=== PATIENT | male | born 1960 | race Caucasian/White ===

== ENCOUNTER 2017-01-31 14:04 | Emergency (ER) | payer OTHER ==
[2017-01-31] MEDS ORDERED: NS 0.9% 1000 ML* 1,000 ML IV SCH ×2 (14:45→15:45)
[2017-01-31 15:31] LABS: Hematocrit 35 % (42-52); Mean Corpuscular HGB Conc 34 g/dl (31-36); Mean Corpuscular Hemoglobin 30 pg (27-31); Mean Corpuscular Volume 89 fL (80-94); Mean Platelet Volume 7 um3 (7.4-10.4); Red Blood Count 3.98 10^6/ul (4.0-5.4); Red Cell Distribution Width 15 % (10.5-15); White Blood Count 8.7 10^3/ul (3.5-10.8)
[2017-01-31 15:36] LABS: ALT 26 U/L (7-52); AST 17 U/L (13-39); Albumin 3.6 g/dL (3.2-5.2); Alkaline Phosphatase 148 U/L (34-104); BUN/Creatinine Ratio 36.1 (8-20); Blood Urea Nitrogen 126 mg/dL (6-24); C Reactive Protein 72.38 mg/L (< 5.00); Calcium 9.4 mg/dL (8.6-10.3); Chloride 95 mmol/L (101-111); Creatine Kinase 81 U/L (10-223); EGFR African American 23.6 (>60); EGFR Non-African American 18.3 (>60); Globulin 4.8 g/dL (2-4); Glucose 134 mg/dL (70-100); Sodium 120 mmol/L (133-145); Total Protein 8.4 g/dL (6.4-8.9)
[2017-01-31] MEDS ORDERED: Acetaminophen TAB* 325 MG PO PRN (15:42)
[2017-01-31] MEDS ORDERED: Senna TAB PO PRN (15:42)
[2017-01-31] MEDS ORDERED: Albuterol/Ipratropium NEB.SOL* Albuterol 2.5 MG/Ipratropium 0.5 MG 3 ML INH PRN (15:42)
[2017-01-31] MEDS ORDERED: oxyCODONE/Acetamin 5/325 MG* TAB PO PRN (15:42)
[2017-01-31 15:44] LABS: Anion Gap 12 mmol/L (2-11); CO2 Carbon Dioxide 13 mmol/L (22-32); Potassium 6.7 mmol/L (3.5-5.0)
[2017-01-31] MEDS ORDERED: Dextrose 50% Syringe 50 ML* 25 GM/50 ML SYRINGE IV PUSH PRN (15:46)
[2017-01-31 15:51] LABS: Acetaminophen < 15 mcg/mL; Alcohol < 10 mg/dL (<10)
[2017-01-31 16:01] LABS: TSH (Thyroid Stimulating Horm) 6.74 mcIU/mL (0.34-5.60)
[2017-01-31] MEDS ORDERED: Insulin REGULAR(*) 1 UNITS UNIT IV PUSH ONE (16:02)
[2017-01-31] MEDS ORDERED: Dextrose 50% Syringe 50 ML* 25 GM/50 ML SYRINGE IV PUSH ONE (16:03)
--- NOTE | 2017-01-31 16:08 | RAD ---
Indication: Weakness, slurred speech. Inability to ambulate. Comparison: CT abdomen of the same date. Technique: Upright AP 1542 hours Report: 6 mm density at the periphery of the RIGHT lower lung zone with probable similar density on the LEFT noted most consistent with nipple shadows however repeat exam with nipple markers would facilitate confirmation. No pulmonary infiltrate, pleural effusion, or pneumothorax. The heart, pulmonary vasculature, and mediastinal contours are unremarkable. IMPRESSION: 1. No evidence for acute intrathoracic disease. 2. 6 mm density at the periphery of the RIGHT lower lung zone with probable similar density on the LEFT noted most consistent with nipple shadows however repeat exam with nipple markers would facilitate confirmation.
--- NOTE | 2017-01-31 16:11 | RAD ---
Indication: Abdominal pain. Urostomy. Altered mental status. Comparison: No relevant prior exams available on the [facility] for comparison. Technique: Noncontrast CT vertex of skull through foramen magnum. Report: The sulci, ventricles, and basal cisterns are normal for age. Au matter white matter differentiation is preserved without evidence for edema. No intra or extra axial hemorrhage, mass, or fluid collection detected. Unremarkable visualized orbital contents. Unremarkable calvarium and skull base. Unremarkable scalp. Fluid level at the LEFT maxillary sinus with small gas bubbles. The remaining paranasal sinuses and mastoid air spaces are grossly clear. IMPRESSION: 1. No CT abnormality of the brain. 2. Stigmata of LEFT maxillary sinusitis.
[2017-01-31] MEDS ORDERED: NS 0.9% 1000 ML* 2,000 ML IV ONE (16:13)
[2017-01-31 16:22] LABS: Urine Bilirubin Negative (Negative); Urine Glucose Negative (Negative); Urine Nitrite Negative (Negative)
[2017-01-31 16:24] LABS: Urine Bacteria Absent (Absent)
--- NOTE | 2017-01-31 16:25 | RAD ---
INDICATION: Abdominal pain. Altered mental status. Assess urostomy. Previous hernia repairs. COMPARISON: November 08, 2015 CT. TECHNIQUE: Multidetector CT images were obtained from the lung bases to the ischial tuberosities. Evaluation of the viscera is limited without IV contrast. Multiplanar reformation. REPORT: Unremarkable visualized inferior thorax. Unremarkable unenhanced liver, gallbladder, pancreas, spleen. No CT abnormality of the upper GI. Small bowel anastomosis visualized at the RIGHT lower quadrant. Negative for significant small bowel dilatation to indicate obstruction. Unremarkable appendix visualized along the RIGHT pelvic sidewall. Unremarkable colon. Negative for ascites or free air. Supraumbilical fat-containing hernia measuring up to 1.3 cm AP by 6.1 cm transverse by 4.5 cm cephalocaudal exiting through a 3.7 cm transverse by 2.8 cm cephalocaudal fascia defect. Negative for inflammatory change within the herniated fat. Negative for additional hernias. Normal adrenal glands. Significant partial staghorn calculus at the RIGHT kidney. Smaller burden of calyceal stones at the LEFT kidney with dominant 1.5 cm stone at the lower pole calyx. The renal stones are new compared with the prior exam. Severe LEFT hydronephrosis is new. No stone visualized at the dilated LEFT ureter extending to the ileal conduit. Post resection of the urinary bladder without suspicious finding at the resection bed. The bilateral testicles are visualized within the inguinal canals. Negative for lymphadenopathy. Mild atherosclerotic calcification of normal diameter abdominal aorta. Physiologic distention of the IVC. Polyarticular degenerative including multilevel advanced degenerative spondylosis and facet joint osteoarthritis without significant interval change. Negative for suspicious focal osseous lesions. IMPRESSION: 1. Supraumbilical fat-containing ventral hernia is new compared with the prior exam. Negative for inflammatory change within the hernia. 2. New high burden of nephrolithiasis greater on the RIGHT than the LEFT with partial staghorn formation. Severe LEFT hydronephrosis without visualized obstructing ureteral stone extending to the ileal conduit. 3. No suspicious finding at the urinary bladder resection bed. 4. Negative for lymphadenopathy. 5. Negative for suspicious osseous lesions.
[2017-01-31] MEDS ORDERED: Insulin LISPRO* 1 UNITS UNIT SUBCUT SCH (16:30)
[2017-01-31 16:34] LABS: Benzodiazepine Urine Screen Presumptive Positive (None Detect)
[2017-01-31] MEDS ORDERED: cefTRIAXone(*) 1 GM in NS 0.9% 50 ML* 50 ML IVPB ONE (16:46)
[2017-01-31] MEDS ORDERED: Sodium Bicarbonate 8.4% IV* 150 MEQ in D5W 1000 ML BAG* 1,000 ML IVPB SCH (17:00)
[2017-01-31] MEDS ORDERED: Sodium Polystyrene ORAL.SOL* 15 GM/60 ML BTL PO ONE (17:49)
[2017-01-31 18:27] LABS: BUN/Creatinine Ratio 36.3 (8-20); Calcium 9.3 mg/dL (8.6-10.3); EGFR African American 25.3 (>60); EGFR Non-African American 19.7 (>60); Potassium 5.5 mmol/L (3.5-5.0)
--- NOTE | 2017-01-31 18:39 | ED ---
Donna Rogel Edward, scribed for Mariano Kelly MD on 01/31/17 at 1502 . Complex/Multi-Sys Presentation - HPI Summary HPI Summary: 56 y/o male CHILO from [facility] c/o nausea, fatigue and RUE weakness. The symptoms started around 3 weeks ago after the stopped taking his medications, and his symptoms have been getting progressively worse. In the ED, the pt goes in and out of conversations. Associated sx: ABD pain, fever. PMHx bladder cancer, DM. - History Of Current Complaint Chief Complaint: EDWeakness Time Seen by Provider: 01/31/17 14:55 Hx Obtained From: Patient Onset/Duration: Lasting Weeks - 1, Still Present Location: Pain At: - ABD pain Associated Signs And Symptoms: Positive: Weakness, Nausea, Abdominal Pain, Fever , Other - Fatigue - Allergies/Home Medications Allergies/Adverse Reactions: Allergies Allergy/AdvReac Type Severity Reaction Status Date / Time No Known Allergies Allergy Verified 11/08/15 08:37 PMH/Surg Hx/FS Hx/Imm Hx Previously Healthy: No Endocrine/Hematology History: Reports: Hx Diabetes Cardiovascular History: Reports: Hx Hypertension History: Comment Only: Hx Renal Disease - denies. - Surgical History Surgery Procedure, Year, and Place: 2 hernia repairs Infectious Disease History: Denies: Traveled Outside the [place] in Last 30 Days - Family History Known Family History: Negative: Other - No family history of liver disease - Social History Alcohol Use: Daily Alcohol Amount: Pt reports having ingested a case of beer today Hx Substance Use: Yes Substance Use Type: Reports: Marijuana Substance Use Comment - Amount & Last Used: Pt reports last use x 1 hr ago Hx Tobacco Use: Yes Smoking Status (MU): Current Every Day Smoker Review of Systems Positive: Fever, Fatigue Eyes: Negative ENT: Negative Cardiovascular: Negative Respiratory: Negative Positive: Abdominal Pain, Nausea Genitourinary: Negative Musculoskeletal: Negative Skin: Negative Positive: Weakness - RUE Psychological: Normal All Other Systems Reviewed And Are Negative: Yes Physical Exam - Summary Physical Exam Summary: Pt is mildly obtunded. The pt goes in and out of periods of being obtunded and clarity. Pt arouses to voice. Triage Information Reviewed: Yes Vital Signs On Initial Exam: Initial Vitals Temp Pulse Resp BP Pulse Ox 97.4 F 65 16 110/77 100 01/31/17 14:31 01/31/17 14:31 01/31/17 14:31 01/31/17 14:31 01/31/17 14:31 Vital Signs Reviewed: Yes Appearance: Positive: Well-Appearing, No Pain Distress Skin: Positive: Warm, Skin Color Reflects Adequate Perfusion, Dry Head/Face: Positive: Normal Head/Face Inspection Eyes: Positive: EOMI, HOLLY ENT: Positive: Normal ENT inspection Dental: Positive: Other - Oral mucosa dry Neck: Positive: Supple, Nontender Respiratory/Lung Sounds: Positive: Clear to Auscultation, Breath Sounds Present Cardiovascular: Positive: RRR Abdomen Description: Positive: Soft, Other: - Pt has an ostomy bag. Tender @ L side ABD Bowel Sounds: Positive: Hypoactive Musculoskeletal: Positive: Normal, Strength/ROM Intact Neurological: Positive: Normal, Sensory/Motor Intact, Alert, Oriented to Person Place, Time Psychiatric: Positive: Affect/Mood Appropriate Diagnostics - Vital Signs Vital Signs Temp Pulse Resp BP Pulse Ox 01/31/17 14:31 97.4 F 65 16 110/77 100 - Laboratory Lab Results: Lab Results 01/31/17 01/31/17 01/31/17 Range/Units 15:12 15:12 15:12 WBC 8.7 (3.5-10.8) 10^3/ul RBC 3.98 L (4.0-5.4) 10^6/ul Hgb 12.0 L (14.0-18.0) g/dl Hct 35 L (42-52) % MCV 89 (80-94) fL MCH 30 (27-31) pg MCHC 34 (31-36) g/dl RDW 15 (10.5-15) % Plt Count 334 (150-450) 10^3/ul MPV 7 L (7.4-10.4) um3 Neut % (Auto) 81.2 (38-83) % Lymph % (Auto) 9.2 L (25-47) % [place] % (Auto) 7.8 (1-9) % Eos % (Auto) 0.9 (0-6) % Baso % (Auto) 0.9 (0-2) % Absolute Neuts (auto) 7.0 (1.5-7.7) 10^3/ul Absolute Lymphs (auto) 0.8 L (1.0-4.8) 10^3/ul Absolute Monos (auto) 0.7 (0-0.8) 10^3/ul Absolute Eos (auto) 0.1 (0-0.6) 10^3/ul Absolute Basos (auto) 0.1 (0-0.2) 10^3/ul Absolute Nucleated RBC 0.01 10^3/ul Nucleated RBC % 0.1 INR (Anticoag Therapy) (0.89-1.11) APTT (26.0-36.3) seconds VBG pH (7.33-7.43) VBG pCO2 (41-51) mmHg VBG pO2 (35-45) mmHg VBG HCO3 (24-28) mmol/L VBG O2 Saturation (70-80) % VBG Base Excess (0-4) Sodium 120 L (133-145) mmol/L Potassium 6.7 H* (3.5-5.0) mmol/L Chloride 95 L (101-111) mmol/L Carbon Dioxide 13 L* (22-32) mmol/L Anion Gap 12 H (2-11) mmol/L BUN 126 H (6-24) mg/dL Creatinine 3.49 H (0.67-1.17) mg/dL Est GFR ( Amer) 23.6 (>60) Est GFR (Non-Af Amer) 18.3 (>60) BUN/Creatinine Ratio 36.1 H (8-20) Glucose 134 H (70-100) mg/dL POC Glucose (mg/dL) (70-100) mg/dL Lactic Acid (0.5-2.0) mmol/L Calcium 9.4 (8.6-10.3) mg/dL Magnesium 3.0 H (1.9-2.7) mg/dL Total Bilirubin 0.80 (0.2-1.0) mg/dL AST 17 (13-39) U/L ALT 26 (7-52) U/L Alkaline Phosphatase 148 H (34-104) U/L Ammonia 30 (16-53) mol/L Total Creatine Kinase 81 (10-223) U/L CK-MB (CK-2) 8.3 H (0.6-6.3) ng/mL Troponin I 0.00 (<0.04) ng/mL C-Reactive Protein 72.38 H (< 5.00) mg/L Total Protein 8.4 (6.4-8.9) g/dL Albumin 3.6 (3.2-5.2) g/dL Globulin 4.8 H (2-4) g/dL Albumin/Globulin Ratio 0.8 L (1-3) TSH 6.74 H (0.34-5.60) mcIU/mL Urine Color Urine Appearance Urine pH (5-9) Ur Specific [place] (1.010-1.030) Urine Protein (Negative) Urine Ketones (Negative) Urine Blood (Negative) Urine Nitrate (Negative) Urine Bilirubin (Negative) Urine Urobilinogen (Negative) Ur Leukocyte Esterase (Negative) Urine WBC (Auto) (Absent) Urine RBC (Auto) (Absent) Ur Squamous Epith Cells (Absent) Urine Bacteria (Absent) Hyaline Casts (Absent) Urine Glucose (Negative) Urine Opiates Screen (None Detect) Acetaminophen < 15 mcg/mL Ur Barbiturates Screen (None Detect) Ur Phencyclidine Scrn (None Detect) Ur Amphetamines Screen (None Detect) U Benzodiazepines Scrn (None Detect) Urine Cocaine Screen (None Detect) U Cannabinoids Screen (None Detect) Serum Alcohol < 10 (<10) mg/dL 01/31/17 01/31/17 01/31/17 Range/Units 15:12 15:12 16:03 WBC (3.5-10.8) 10^3/ul RBC (4.0-5.4) 10^6/ul Hgb (14.0-18.0) g/dl Hct (42-52) % MCV (80-94) fL MCH (27-31) pg MCHC (31-36) g/dl RDW (10.5-15) % Plt Count (150-450) 10^3/ul MPV (7.4-10.4) um3 Neut % (Auto) (38-83) % Lymph % (Auto) (25-47) % [place] % (Auto) (1-9) % Eos % (Auto) (0-6) % Baso % (Auto) (0-2) % Absolute Neuts (auto) (1.5-7.7) 10^3/ul Absolute Lymphs (auto) (1.0-4.8) 10^3/ul Absolute Monos (auto) (0-0.8) 10^3/ul Absolute Eos (auto) (0-0.6) 10^3/ul Absolute Basos (auto) (0-0.2) 10^3/ul Absolute Nucleated RBC 10^3/ul Nucleated RBC % INR (Anticoag Therapy) 0.93 (0.89-1.11) APTT 31.9 (26.0-36.3) seconds VBG pH (7.33-7.43) VBG pCO2 (41-51) mmHg VBG pO2 (35-45) mmHg VBG HCO3 (24-28) mmol/L VBG O2 Saturation (70-80) % VBG Base Excess (0-4) Sodium (133-145) mmol/L Potassium (3.5-5.0) mmol/L Chloride (101-111) mmol/L Carbon Dioxide (22-32) mmol/L Anion Gap (2-11) mmol/L BUN (6-24) mg/dL Creatinine (0.67-1.17) mg/dL Est GFR ( Amer) (>60) Est GFR (Non-Af Amer) (>60) BUN/Creatinine Ratio (8-20) Glucose (70-100) mg/dL POC Glucose (mg/dL) (70-100) mg/dL Lactic Acid 0.7 (0.5-2.0) mmol/L Calcium (8.6-10.3) mg/dL Magnesium (1.9-2.7) mg/dL Total Bilirubin (0.2-1.0) mg/dL AST (13-39) U/L ALT (7-52) U/L Alkaline Phosphatase (34-104) U/L Ammonia (16-53) mol/L Total Creatine Kinase (10-223) U/L CK-MB (CK-2) (0.6-6.3) ng/mL Troponin I (<0.04) ng/mL C-Reactive Protein (< 5.00) mg/L Total Protein (6.4-8.9) g/dL Albumin (3.2-5.2) g/dL Globulin (2-4) g/dL Albumin/Globulin Ratio (1-3) TSH (0.34-5.60) mcIU/mL Urine Color Urine Appearance Urine pH (5-9) Ur Specific [place] (1.010-1.030) Urine Protein (Negative) Urine Ketones (Negative) Urine Blood (Negative) Urine Nitrate (Negative) Urine Bilirubin (Negative) Urine Urobilinogen (Negative) Ur Leukocyte Esterase (Negative) Urine WBC (Auto) (Absent) Urine RBC (Auto) (Absent) Ur Squamous Epith Cells (Absent) Urine Bacteria (Absent) Hyaline Casts (Absent) Urine Glucose (Negative) Urine Opiates Screen Presumptive positive H (None Detect) Acetaminophen mcg/mL Ur Barbiturates Screen None detected (None Detect) Ur Phencyclidine Scrn None detected (None Detect) Ur Amphetamines Screen None detected (None Detect) U Benzodiazepines Scrn Presumptive positive H (None Detect) Urine Cocaine Screen None detected (None Detect) U Cannabinoids Screen Presumptive positive H (None Detect) Serum Alcohol (<10) mg/dL 01/31/17 01/31/17 01/31/17 Range/Units 16:03 16:27 18:05 WBC (3.5-10.8) 10^3/ul RBC (4.0-5.4) 10^6/ul Hgb (14.0-18.0) g/dl Hct (42-52) % MCV (80-94) fL MCH (27-31) pg MCHC (31-36) g/dl RDW (10.5-15) % Plt Count (150-450) 10^3/ul MPV (7.4-10.4) um3 Neut % (Auto) (38-83) % Lymph % (Auto) (25-47) % [place] % (Auto) (1-9) % Eos % (Auto) (0-6) % Baso % (Auto) (0-2) % Absolute Neuts (auto) (1.5-7.7) 10^3/ul Absolute Lymphs (auto) (1.0-4.8) 10^3/ul Absolute Monos (auto) (0-0.8) 10^3/ul Absolute Eos (auto) (0-0.6) 10^3/ul Absolute Basos (auto) (0-0.2) 10^3/ul Absolute Nucleated RBC 10^3/ul Nucleated RBC % INR (Anticoag Therapy) (0.89-1.11) APTT (26.0-36.3) seconds VBG pH 7.13 L (7.33-7.43) VBG pCO2 41 (41-51) mmHg VBG pO2 19 L (35-45) mmHg VBG HCO3 12.0 L (24-28) mmol/L VBG O2 Saturation 32.2 L (70-80) % VBG Base Excess -14.8 L (0-4) Sodium 125 L (133-145) mmol/L Potassium 5.5 H (3.5-5.0) mmol/L Chloride 102 (101-111) mmol/L Carbon Dioxide 15 L (22-32) mmol/L Anion Gap 8 (2-11) mmol/L BUN 119 H (6-24) mg/dL Creatinine 3.28 H (0.67-1.17) mg/dL Est GFR ( Amer) 25.3 (>60) Est GFR (Non-Af Amer) 19.7 (>60) BUN/Creatinine Ratio 36.3 H (8-20) Glucose 44 L (70-100) mg/dL POC Glucose (mg/dL) (70-100) mg/dL Lactic Acid (0.5-2.0) mmol/L Calcium 9.3 (8.6-10.3) mg/dL Magnesium (1.9-2.7) mg/dL Total Bilirubin (0.2-1.0) mg/dL AST (13-39) U/L ALT (7-52) U/L Alkaline Phosphatase (34-104) U/L Ammonia (16-53) mol/L Total Creatine Kinase (10-223) U/L CK-MB (CK-2) (0.6-6.3) ng/mL Troponin I (<0.04) ng/mL C-Reactive Protein (< 5.00) mg/L Total Protein (6.4-8.9) g/dL Albumin (3.2-5.2) g/dL Globulin (2-4) g/dL Albumin/Globulin Ratio (1-3) TSH (0.34-5.60) mcIU/mL Urine Color Yellow Urine Appearance Cloudy Urine pH 8.0 (5-9) Ur Specific [place] 1.000 L (1.010-1.030) Urine Protein 2+(100 mg/dl) H (Negative) Urine Ketones Negative (Negative) Urine Blood 2+ H (Negative) Urine Nitrate Negative (Negative) Urine Bilirubin Negative (Negative) Urine Urobilinogen Negative (Negative) Ur Leukocyte Esterase 3+ H (Negative) Urine WBC (Auto) 3+(>20/hpf) H (Absent) Urine RBC (Auto) 2+(6-10/hpf) H (Absent) Ur Squamous Epith Cells Present H (Absent) Urine Bacteria Absent (Absent) Hyaline Casts Present H (Absent) Urine Glucose Negative (Negative) Urine Opiates Screen (None Detect) Acetaminophen mcg/mL Ur Barbiturates Screen (None Detect) Ur Phencyclidine Scrn (None Detect) Ur Amphetamines Screen (None Detect) U Benzodiazepines Scrn (None Detect) Urine Cocaine Screen (None Detect) U Cannabinoids Screen (None Detect) Serum Alcohol (<10) mg/dL 01/31/17 Range/Units 18:16 WBC (3.5-10.8) 10^3/ul RBC (4.0-5.4) 10^6/ul Hgb (14.0-18.0) g/dl Hct (42-52) % MCV (80-94) fL MCH (27-31) pg MCHC (31-36) g/dl RDW (10.5-15) % Plt Count (150-450) 10^3/ul MPV (7.4-10.4) um3 Neut % (Auto) (38-83) % Lymph % (Auto) (25-47) % [place] % (Auto) (1-9) % Eos % (Auto) (0-6) % Baso % (Auto) (0-2) % Absolute Neuts (auto) (1.5-7.7) 10^3/ul Absolute Lymphs (auto) (1.0-4.8) 10^3/ul Absolute Monos (auto) (0-0.8) 10^3/ul Absolute Eos (auto) (0-0.6) 10^3/ul Absolute Basos (auto) (0-0.2) 10^3/ul Absolute Nucleated RBC 10^3/ul Nucleated RBC % INR (Anticoag Therapy) (0.89-1.11) APTT (26.0-36.3) seconds VBG pH (7.33-7.43) VBG pCO2 (41-51) mmHg VBG pO2 (35-45) mmHg VBG HCO3 (24-28) mmol/L VBG O2 Saturation (70-80) % VBG Base Excess (0-4) Sodium (133-145) mmol/L Potassium (3.5-5.0) mmol/L Chloride (101-111) mmol/L Carbon Dioxide (22-32) mmol/L Anion Gap (2-11) mmol/L BUN (6-24) mg/dL Creatinine (0.67-1.17) mg/dL Est GFR ( Amer) (>60) Est GFR (Non-Af Amer) (>60) BUN/Creatinine Ratio (8-20) Glucose (70-100) mg/dL POC Glucose (mg/dL) 88 (70-100) mg/dL Lactic Acid (0.5-2.0) mmol/L Calcium (8.6-10.3) mg/dL Magnesium (1.9-2.7) mg/dL Total Bilirubin (0.2-1.0) mg/dL AST (13-39) U/L ALT (7-52) U/L Alkaline Phosphatase (34-104) U/L Ammonia (16-53) mol/L Total Creatine Kinase (10-223) U/L CK-MB (CK-2) (0.6-6.3) ng/mL Troponin I (<0.04) ng/mL C-Reactive Protein (< 5.00) mg/L Total Protein (6.4-8.9) g/dL Albumin (3.2-5.2) g/dL Globulin (2-4) g/dL Albumin/Globulin Ratio (1-3) TSH (0.34-5.60) mcIU/mL Urine Color Urine Appearance Urine pH (5-9) Ur Specific [place] (1.010-1.030) Urine Protein (Negative) Urine Ketones (Negative) Urine Blood (Negative) Urine Nitrate (Negative) Urine Bilirubin (Negative) Urine Urobilinogen (Negative) Ur Leukocyte Esterase (Negative) Urine WBC (Auto) (Absent) Urine RBC (Auto) (Absent) Ur Squamous Epith Cells (Absent) Urine Bacteria (Absent) Hyaline Casts (Absent) Urine Glucose (Negative) Urine Opiates Screen (None Detect) Acetaminophen mcg/mL Ur Barbiturates Screen (None Detect) Ur Phencyclidine Scrn (None Detect) Ur Amphetamines Screen (None Detect) U Benzodiazepines Scrn (None Detect) Urine Cocaine Screen (None Detect) U Cannabinoids Screen (None Detect) Serum Alcohol (<10) mg/dL Result Diagrams: 01/31/17 15:12 01/31/17 18:05 Lab Statement: Any lab studies that have been ordered have been reviewed, and results considered in the medical decision making process. - Radiology CXR Xray Interpretation: No Acute Changes - 1. No evidence for acute intrathoracic disease. 2. 6 mm density at the periphery of the RIGHT lower lung zone with probable similar density on the LEFT noted most consistent with nipple shadows however repeat exam with nipple markers would facilitate confirmation. ED PHYSICIAN AGREEABLE Radiology Interpretation Completed By: Radiologist - CT BRAIN CT CT Interpretation: Positive (See Comments) - 1. No CT abnormality of the brain. 2. Stigmata of LEFT maxillary sinusitis. ED PHYSICIAN AGREEABLE CT Interpretation Completed By: Radiologist ABD/PEL CT CT Interpretation: Positive (See Comments) - 1. Supraumbilical fat-containing ventral hernia is new compared with the prior exam. Negative for inflammatory change within the hernia. 2. New high burden of nephrolithiasis greater on the RIGHT than the LEFT with partial staghorn formation. Severe LEFT hydronephrosis without visualized obstructing ureteral stone extending to the ileal conduit. 3. No suspicious finding at the urinary bladder resection bed. 4. Negative for lymphadenopathy. 5. Negative for suspicious osseous lesions. ED PHYSICIAN AGREEABLE CT Interpretation Completed By: Radiologist - EKG 1 ST Segment: Normal Ectopy: None EKG Interpretation: 14:44 - SINUS BRADYCARDIA @ 52 BPM Complex Multi-Symp Course/Dx Course Of Treatment: INITIALLY PATIENT SEEN BY HOSPITALIST FOR ADMISSION. WITH CT RESULT SHOWING HYDRONEPHROSIS; IF THE PATIENT NEEDS UROLOGY INTERVENTION, OUR UROLOGIST DO NOT MANAGE UROSTOMIES/ILEAL CONDUITS, THEREFORE THE PATIENT WAS TRANSFERED TO [facility]. ACCEPTED BY MICU DR ALMANZA. PATIENT GIVEN AMP OF DEXTROSE/10 UNITS IV INSULIN, CALCIUM GLUCONATE, BICARB DRIP, ROCEPHIN 1 GM IV, IVF AND KAYEXALATE PO. POTASSIUM WENT FROM 6.7 TO 5.5. TRANSFER TO [facility] IN FAIR/STABLE CONDITION. - Diagnoses Provider Diagnoses: Acute renal failure, History of urostomy, Hydronephrosis, Hyperkalemia, Acidosis Discharge - Discharge Plan Condition: Fair Disposition: TRANS HIGHER LVL OF CARE FAC Referrals: Stefano Rai MD [Primary Care Provider] - The documentation as recorded by the Donna zeng Edward accurately reflects the service I personally performed and the decisions made by me, Mariano Kelly MD.
[2017-01-31 19:08] VITALS: BP 126/102
[2017-01-31] MEDS ORDERED: Heparin VIAL(*) 5000 UNITS/ML VIAL (FIVE THOUSAND) SUBCUT SCH (21:00)
--- NOTE | 2017-02-01 00:37 | CONS ---
CC: Dr. Rai; Dr. Mcdaniel; Dr. Kelly * CONSULTATION REPORT: DATE OF CONSULT: 01/31/17 PRIMARY CARE PROVIDER: Dr. Rai. UROLOGIST: Dr. Mcdaniel. CHIEF COMPLAINT: Altered mental status. HISTORY OF PRESENT ILLNESS: Carson Martinez is a 56-year-old male who is today a very poor historian. He was brought to the hospital after his noted him being lethargic and she stated that he has been "ill" for 3 weeks. Please note that both patient's as well as patient are very poor historians. Patient is mildly encephalopathic. He stated that he has been vomiting and feeling poorly for the past 3 weeks and has not eaten that much. He said that he lost weight but he is unable to quantify it. Occasionally he falls asleep in mid sentence. I was unable to get any medical records from Dr. Mcdaniel's office or Dr. Rai' s office yet and I am evaluating this patient in the ER. Patient stated that he discontinued all of his medications 3 weeks ago, but could not give me the reason. A consultation was requested in regards to possibility of admission to our facility. PAST MEDICAL HISTORY: 1. Hepatitis C. 2. History of hernia repair bilaterally. 3. History of bladder cancer, status post ileal conduit. Surgery performed at [facility] which I believe was in 2016. MEDICATIONS: None. Patient used to be on: 1. Oxycodone 5 mg every 8 hours. 2. Glipizide 5 mg b.i.d.. 3. Zoloft 25 mg daily. 4. Metformin 500 mg b.i.d. 5. Lipitor 20 mg daily. ALLERGIES: No known drug allergies. FAMILY HISTORY: Positive for mother who of "heart attack" and father who because he "couldn't breathe." SOCIAL HISTORY: Patient smokes 1 pack per day, started when he was a teenager. Drinks 2 to 6 beers a day. Denies any drug use. He is currently not working and he is . His Carol Macdonald is the surrogate. REVIEW OF SYSTEMS: Please see history of present illness. Currently, patient denies any pain. He denies shortness of breath or fevers. He said that he lost weight. He stated that his urine in the urostomy bag had been cloudy and "milky." All the remaining 14 systems were reviewed with the patient who is a very poor historian and lethargic and were otherwise negative. PHYSICAL EXAM: Blood pressure of 110/77, heart rate of 65 and regular, respiratory rate 16, oxygen saturation 100% on room air, temperature 97.4. General: The patient is a 56-year-old cachectic-appearing male who is in no acute distress, lethargic. Patient is aware of being in the hospital and aware of his date of and self. He recognizes his . He could not give me the date. HEENT: Head atraumatic, normocephalic. Eyes: Pupils are equal, reactive to light and accommodation. Oropharynx is clear. Mucosa dry. Neck: Supple. No JVD. No bruits bilaterally. Cardiovascular: Regular rate and rhythm. No murmurs. Respiratory: Clear to auscultation bilaterally. Abdomen: Soft, nontender, bowel sounds present in all quadrants. Ileostomy present with bag draining cloudy urine. Extremities: There is no edema. Pulses +2 bilaterally. No clubbing or cyanosis. On evaluation of the skin, no ecchymotic areas or rashes noted. Neuro Evaluation: Speech clear. Cranial nerves II through XII grossly intact. Motor strength is 5/5 bilaterally. Psychiatric evaluation: Patient occasionally becomes upset. He made statements like, "I am so sick, I don't want to live like that." He was upset when he was mentioned that he needs to be transferred for possibility of urologic procedure. DIAGNOSTIC STUDIES/LAB DATA: White blood cell count of 8.7, hemoglobin 12.0, hematocrit 35, and platelets of 334. VBG showed pH of 7.13, pCO2 of 41, pO2 of 19, bicarb of 12. Base excess of -14. Sodium was 120, potassium 6.7, chloride 95, carbon dioxide 13, anion gap of 12, creatine 3.49. Liver function tests showed alkaline phosphatase of 148, ALT of 26, AST of 17. Total bilirubin of 0.8. Lactic acid was 0.7. C-reactive protein was 72. TSH of 6.7. Globulin of 4.8, albumin of 3.6. Urinalysis showed +2 protein, +2 blood, +3 esterase, +3 wbc's, absent bacteria. Urine drug tox screen was positive for cannabinoids, benzodiazepines and opioids. CT of abdomen and pelvis, impression: "Supraumbilical fat containing ventral hernia is new compared to prior exam from 2016. Negative for inflammatory change within the hernia. New high burden nephrolithiasis greater on the right than the left with partial staghorn formation. Severe left hydronephrosis without visualized obstructing ureteral stone, extending to the ileal conduit. No suspicious finding of the urinary bladder resection bed. Negative for lymphadenopathy. Negative for suspicious ulcers or lesions." Brain CT, impression: "No CT abnormality of the brain. Stigmata of left maxillary sinusitis." Patient's EKG showed sinus bradycardia with a heart rate of 72 beats per minute and no ST changes. Portable chest x-ray showed 6-mm density at the periphery of the right lower lung zone with probable similar density of the left, noted most consistent with nipple shadows; however, repeat exam with nipple markers would facilitate confirmation. ASSESSMENT AND PLAN: Carson Martinez is a 56-year-old male with history of bladder cancer status post ileal conduit, who presents with alteration of mental status, lethargy, hyperkalemia, severe metabolic acidosis, acute renal failure and severe dehydration. I discussed the case with Dr. Mcdaniel from the emergency department. At this point, the CT shows severe left-sided hydronephrosis. Patient has ileal conduit and his urologist is Dr. Mcdaniel from [place]. I do not believe that our urology department would be comfortable with managing this patient, but if they were, we do not have Urology available on-call today. At this point, recommendation is for the patient to be transferred to a tertiary care center for further treatment. In regards to his hyperkalemia, he was treated in the emergency department with infusion of insulin, dextrose, calcium gluconate and 2 L intravenous saline so far. Also started him on bicarb drip due to his severe metabolic acidosis. He also received a dose of ceftriaxone intravenously for possibility of UTI. TIME SPENT: Please note that approximately 65 minutes was spent on consultation of this patient, more than half that time was spent [id number] with the patient doing the interview and physical exam and counseling. [id number]/[facility] [place] #: [id number] PADMA
--- NOTE | 2017-02-03 21:25 | PN ---
Progress Note - Progress Note Date of Service: 01/31/17 Note: patient was transferred to higher level of care. urine culture preliminary results show >100,000 of e. coli 10-25,000 of provudencia rettgeri 10-25,000 of klebsiella pneumoniae. no further action required as patient was hospitalized elsewhere.
== END 2017-01-31 19:19 | disposition short-term general hospital (02) ==
LOC: ED 14:04 → MEDTELE 15:42 → UNDOADMIN 15:42 → ED 19:19
DX: R53.1 Weakness (principal); N17.9 Acute kidney failure, unspecified; R11.0 Nausea; R10.9 Unspecified abdominal pain; R50.9 Fever, unspecified; R53.83 Other fatigue; F17.210 Nicotine dependence, cigarettes, uncomplicated; N13.30 Unspecified hydronephrosis; E87.5 Hyperkalemia; E87.2 Acidosis; Z93.6 Other artificial openings of urinary tract status
CPT/HCPCS: 36415; 70450; 71010; 74176; 80048; 80053; 80307; 80320; 80329; 81003; 81015; 82140; 82550; 82553; 82803; 83605; 83735; 84443; 84484; 85025; 85610; 85730; 86140; 86703; 87077; 87086; 87186; 93005; 96365; 99283; A9270-GY; G0480; J0610; J0696; J7060

== ENCOUNTER 2017-05-20 14:03 | Emergency (ER) | payer OTHER ==
[2017-05-20] MEDS ORDERED: HYDROcodone/ACETAMIN 5-325 MG* 1 TAB PO ONE (14:40)
--- NOTE | 2017-05-20 15:26 | RAD ---
INDICATION: Inspiration pain after injury to left ribs COMPARISON: None. TECHNIQUE: 4 views of the left ribs were obtained. FINDINGS: An external marker is noted overlying the left lateral lower ribs No fracture or significant focal osseous abnormality is seen. No pneumothorax is apparent. Limited views demonstrate grossly clear lungs. IMPRESSION: No radiographically apparent displaced rib fracture or pneumothorax. If the patient's symptoms persist, follow-up imaging is recommended.
[2017-05-20 15:57] VITALS: BP 128/72
--- NOTE | 2017-05-20 18:29 | ED ---
Back Pain - HPI Summary HPI Summary: Patient presents to the ED with CC of left rib pain. Patient states he fell over furniture and states he landed directly into the left rib cage. Denies SOB. He states he does not want to take deep breaths d/t the pain. Denies any other symptoms. He uses marijuana for pain and any discomfort. He has a history of bladder CA with a urostomy bag. Denies bleeding, hematemesis, melena. Denies any other concerns. Has been taking tylenol and using marijuana for pain. - History of Current Complaint Chief Complaint: EDGeneral Stated Complaint: FALL, LEFT RIB PAIN Time Seen by Provider: 05/20/17 14:38 Hx Obtained From: Patient Onset/Duration: Gradual Onset Onset/Duration: Started Hours Ago Timing: Constant Back Pain Location: Is Discrete @ - left ribs without radiation Pain Intensity: 6 Pain Scale Used: 0-10 Numeric Character: Aching Aggravating Symptom(s): Movement, Lifting Alleviating Symptom(s): Rest, Position Associated Signs And Symptoms: Negative: Weakness, Numbness - Risk Factors AAA Risk Factors: Negative TAD Risk Factors: Negative Cauda Equina Risk Factors: Negative Epidural Abscess Risk Factors: Negative - Allergies/Home Medications Allergies/Adverse Reactions: Allergies Allergy/AdvReac Type Severity Reaction Status Date / Time No Known Allergies Allergy Verified 11/08/15 08:37 PMH/Surg Hx/FS Hx/Imm Hx Previously Healthy: Yes Endocrine/Hematology History: Reports: Hx Diabetes Cardiovascular History: Reports: Hx Hypertension History: Comment Only: Hx Renal Disease - denies. - Surgical History Surgery Procedure, Year, and Place: 2 hernia repairs - Immunization History Date of Influenza Vaccine: Fall 2016 Hx Pertussis Vaccination: No Immunizations Up to Date: Unable to Obtain/Confirm Infectious Disease History: No Infectious Disease History: Denies: Traveled Outside the [place] in Last 30 Days - Family History Known Family History: Negative: Other - No family history of liver disease - Social History Occupation: Employed Full-time Lives: With Family Alcohol Use: Weekly Alcohol Amount: Pt reports having ingested a case of beer today Hx Substance Use: Yes Substance Use Type: Reports: Marijuana Substance Use Comment - Amount & Last Used: currently Hx Tobacco Use: Yes Smoking Status (MU): Light Every Day Tobacco Smoker Review of Systems Constitutional: Negative Negative: Fever, Chills, Fatigue Eyes: Negative Respiratory: Negative Gastrointestinal: Negative Negative: no symptoms reported, see HPI Positive: Arthralgia - left ribs without radiation - no ecchymosis or other discoloration is noted Negative: Rash, Bruising Neurological: Negative All Other Systems Reviewed And Are Negative: Yes Physical Exam Triage Information Reviewed: Yes Vital Signs On Initial Exam: Initial Vitals Temp Pulse Resp BP Pulse Ox 98.0 F 67 22 153/66 97 05/20/17 14:08 05/20/17 14:08 05/20/17 14:08 05/20/17 14:08 05/20/17 14:08 Vital Signs Reviewed: Yes Appearance: Positive: Well-Appearing, Well-Nourished Skin: Positive: Warm, Skin Color Reflects Adequate Perfusion Head/Face: Positive: Normal Head/Face Inspection Eyes: Positive: EOMI, HOLLY, Conjunctiva Clear Neck: Positive: Supple, Nontender, No Lymphadenopathy Respiratory/Lung Sounds: Positive: Clear to Auscultation, Breath Sounds Present Cardiovascular: Positive: RRR, Pulses are Symmetrical in both Upper and Lower Extremities Male Genital Exam: Positive: other - urostomy bag Musculoskeletal: Positive: Pain @ - left ribs without ecchymosis Neurological: Positive: Speech Normal Psychiatric: Positive: Normal, Affect/Mood Appropriate Diagnostics - Vital Signs Vital Signs Temp Pulse Resp BP Pulse Ox 05/20/17 15:54 99.3 F 70 16 128/72 97 05/20/17 14:08 98.0 F 67 22 153/66 97 - Laboratory Lab Statement: Any lab studies that have been ordered have been reviewed, and results considered in the medical decision making process. Back Pain Course/Dx - Course Course Of Treatment: Patient is evaluated for rib pain after a fall. IMPRESSION : No radiographically apparent displaced rib fracture or pneumothorax. If the patient's symptoms persist, follow-up imaging is recommended. Patient is encouraged tylenol and spirometer (he has at home from previous surgery) - he is OK with plan and discharge and will return for any worsening or changing symptoms. - Diagnoses Provider Diagnoses: Rib contusion Discharge - Discharge Plan Condition: Stable Disposition: HOME Patient Education Materials: Rib Contusion (ED) Referrals: Stefano Rai MD [Primary Care Provider] - Additional Instructions: Ibuprofen 600mg three times daily Heat to the area several times per day Deep breaths to prevent pneumonia
== END 2017-05-20 15:54 | disposition home or self-care (01) ==
LOC: ED 14:03
DX: S20.212A Contusion of left front wall of thorax, initial encounter (principal); R07.81 Pleurodynia; W19.XXXA Unspecified fall, initial encounter; Y93.9 Activity, unspecified; Y92.9 Unspecified place or not applicable
CPT/HCPCS: 99282

== ENCOUNTER 2018-02-27 09:12 | Emergency (ER) | payer OTHER ==
[2018-02-27] MEDS ORDERED: Albuterol/Ipratropium NEB.SOL* Albuterol 2.5 MG/Ipratropium 0.5 MG 3 ML INH ONE (09:46)
[2018-02-27] MEDS ORDERED: NS 0.9% 1000 ML* 1,000 ML IV ONE (09:46)
--- NOTE | 2018-02-27 09:49 | ED ---
GI/ HPI - HPI Summary HPI Summary: The patient is a 57 y/o M presenting to [facility] accompanied by with a chief complaint of active bleeding from his stoma starting two days ago. He has a stoma placed due to a cystectomy as a result of bladder cancer (dx in 2016, surgery done at [facility] by Dr. Otoniel Campos, urologist). He has had bleeding in the stoma before, but not as heavy as this. During those experiences , he presented to [facility] and had a nephrostomy placed. He additionally c/ o URI symptoms, including CP with cough, rhinorrhea, and weakness and lightheadedness, all of which he has been treating with Mucinex during the day and Nyquil at night. He denies fevers, sore throat, headache, hematochezia, and abd pain. His overall pain is currently rated 6/10 in severity. He currently takes Norvasc and Effexor. He has not gotten a flu shot this year. He smokes 1/ 2 pack of cigarettes a day. - History of Current Complaint Chief Complaint: EDUrogenitalProblems Time Seen by Provider: 02/27/18 09:26 Stated Complaint: BLOOD IN STOOL Hx Obtained From: Patient Onset/Duration: Started Days Ago - two, Still Present Timing: Lasting Days - two Severity: Moderate Current Severity: Moderate Pain Intensity: 6 Associated Signs and Symptoms: Positive: Other: - POSITIVE: CP with cough, rhinorrhea, weakness, lightheadedness; NEGATIVE: hematochezia, abd pain, headache - Allergy/Home Medications Allergies/Adverse Reactions: Allergies Allergy/AdvReac Type Severity Reaction Status Date / Time No Known Allergies Allergy Verified 02/27/18 09:22 Home Medications: Home Medications Amlodipine Besylate [Norvasc 2.5 mg tab] 2.5 mg PO DAILY 02/27/18 [History Confirmed 02/27/18] Furosemide 20 mg PO DAILY 02/27/18 [History Confirmed 02/27/18] Venlafaxine ER (NF) [Effexor ER (NF)] 37.5 mg PO DAILY 02/27/18 [History Confirmed 02/27/18] PMH/Surg Hx/FS Hx/Imm Hx Endocrine/Hematology History: Reports: Hx Diabetes Cardiovascular History: Reports: Hx Hypertension History: Comment Only: Hx Renal Disease - denies. - Cancer History Cancer Type, Location and Year: bladder CA dx in 2016 with cystectomy at [facility] by Dr. Otoniel Mcdaniel Hx Chemotherapy: Yes - Surgical History Surgery Procedure, Year, and Place: 2 hernia repairs - Immunization History Date of Influenza Vaccine: Fall 2016 Infectious Disease History: No Infectious Disease History: Denies: Traveled Outside the [place] in Last 30 Days - Family History Known Family History: Negative: Other - No family history of liver disease - Social History Alcohol Use: Weekly Alcohol Amount: 18 pack/weekend Hx Substance Use: Yes Substance Use Type: Reports: Marijuana Substance Use Comment - Amount & Last Used: 02/26 Hx Tobacco Use: Yes Smoking Status (MU): Light Every Day Tobacco Smoker Review of Systems Positive: Nasal Discharge. Negative: Sore Throat Positive: Chest Pain - with cough Positive: Cough Positive: Other - NEGATIVE: hematochezia. Negative: Abdominal Pain Positive: other - bleeding from stoma Neurological: Other - lightheaded Positive: Weakness. Negative: Headache All Other Systems Reviewed And Are Negative: Yes Physical Exam - Summary Physical Exam Summary: Appearance: Well appearing, no pain distress Skin: warm, dry, reflects adequate perfusion Head/face: normal Eyes: EOMI, HOLLY ENT: mucous membranes moist, clear nasal discharge Neck: supple, non-tender Respiratory: diffuse wheezes bilaterally, breath sounds present Cardiovascular: RRR, pulses symmetrical Abdomen: non-tender, soft Bowel Sounds: present Musculoskeletal: normal, strength/ROM intact Neuro: normal, sensory motor intact, A&Ox3 Triage Information Reviewed: Yes Vital Signs On Initial Exam: Initial Vitals Temp Pulse Resp BP Pulse Ox 97.4 F 61 16 174/86 98 02/27/18 09:22 02/27/18 09:22 02/27/18 09:22 02/27/18 09:22 02/27/18 09:22 Vital Signs Reviewed: Yes Diagnostics - Vital Signs Vital Signs Temp Pulse Resp BP Pulse Ox 02/27/18 09:29 54 177/110 99 02/27/18 09:22 97.4 F 61 16 174/86 98 - Laboratory Result Diagrams: 02/27/18 09:57 02/27/18 09:57 Lab Statement: Any lab studies that have been ordered have been reviewed, and results considered in the medical decision making process. Re-Evaluation - Re-Evaluation First Eval Re-Evaluation Time: 11:30 Change: Improved Comment: Patient's wheezing has mostly resolved. GIGU Course/Dx - Course Course Of Treatment: Patient presents with URI symptoms without fever and gross hematuria through ileal conduit. He has a history of same requiring nephrostomy tubes done in [place]. He has no flank pain or abdominal pain. A urine culture was obtained here. His wheezing has improved with breathing treatments. He has a desire to leave prior to x-ray of the chest. He desires to go to [place] where his urologist is. I have called for transfer and they have agreed to accept him but the patient wishes to drive himself. As such, he will require discharged from this facility with removal of his IV. He is stable for this. He understands that he may have to wait in the ER. His accepting physician in the ER is Dr. Hannon and will be seen by urology residents and Dr. Black from urology. I did speak with her through the transfer center to have this arranged. Full records for transfer were sent with the patient as if a standard transfer. - Diagnoses Differential Diagnoses - Male: Other - Upper respiratory infection, pneumonia, UTI, pyelonephritis, renal mass Provider Diagnoses: Hematuria, gross, History of malignant neoplasm of bladder, Upper respiratory infection, acute, Tobacco abuse - Physician Notifications Discussed Care Of Patient With: Dr. Hannon - [facility] ED Time Discussed With Above Provider: 11:45 Instructed by Provider To: Other - I consulted with Dr. Hannon at [facility], ED physician. The patient will be seen under the attending Dr. Bernard, urology. Discharge - Sign-Out/Discharge Documenting (check all that apply): Patient Departure - Patient will be discharge home with referral to [facility] immediately. - Discharge Plan Condition: Stable Disposition: HOME-RECOMMEND TO ED Patient Education Materials: Hematuria (ED) Referrals: Stefano Rai MD [Primary Care Provider] - Additional Instructions: [facility] directly to [facility] to be admitted by urology as discussed. - Billing Disposition and Condition Condition: STABLE Disposition: Home-Recommend to ED - Attestation Statements Document Initiated by Scribe: Yes Documenting Scribe: Karrie Pastrana Provider For Whom Scribe is Documenting (Include Credential): Dr. Teofiol Denton MD Scribe Attestation: IKarrie, scribed for Dr. Teofilo Denton MD on 02/27/18 at 1147. Scribe Documentation Reviewed: Yes Provider Attestation: The documentation as recorded by the scribe, Karrie Pastrana accurately reflects the service I personally performed and the decisions made by me, Dr. Teofilo Denton MD
[2018-02-27 10:08] LABS: ABS Basophils 0 10^3/ul (0-0.2); ABS Eosinophils 0.2 10^3/ul (0-0.6); ABS Lymphocytes 1.3 10^3/ul (1.0-4.8); ABS Monocytes 0.6 10^3/ul (0-0.8); ABS Neutrophils 6.6 10^3/ul (1.5-7.7); ABS Nucleated RBC 0 10^3/ul; Eosinophil % 2.3 % (0-6); Hematocrit 42 % (42-52); Hemoglobin 14.5 g/dl (14.0-18.0); Lymphocyte % 15.4 % (25-47); Mean Corpuscular HGB Conc 35 g/dl (31-36); Mean Corpuscular Hemoglobin 32 pg (27-31); Mean Corpuscular Volume 94 fL (80-94); Mean Platelet Volume 6.2 um3 (7.4-10.4); Nucleated Red Blood Cells % 0.2; Platelet Count 230 10^3/ul (150-450); Red Blood Count 4.46 10^6/ul (4.00-5.40); Red Cell Distribution Width 14 % (10.5-15); White Blood Count 8.8 10^3/ul (3.5-10.8)
[2018-02-27 10:19] LABS: EGFR Non-African American 58.7 (>60)
[2018-02-27 11:52] VITALS: BP 170/102
== END 2018-02-27 12:07 | disposition short-term general hospital (02) ==
LOC: ED 09:12
DX: R31.0 Gross hematuria (principal); Z85.51 Personal history of malignant neoplasm of bladder; J06.9 Acute upper respiratory infection, unspecified; F17.210 Nicotine dependence, cigarettes, uncomplicated; E11.9 Type 2 diabetes mellitus without complications; I10 Essential (primary) hypertension; Z79.899 Other long term (current) drug therapy
CPT/HCPCS: 36415; 80053; 83605; 85025; 87086; 96360; 96361; 99284; A9270-GY

== ENCOUNTER 2019-01-20 15:10 | Emergency (ER) | payer OTHER ==
[2019-01-20 15:43] VITALS: BP 139/77
== END 2019-01-20 16:22 | disposition left against medical advice (07) ==
LOC: UCEAST 15:10
DX: Z53.8 Procedure and treatment not carried out for other reasons (principal)
CPT/HCPCS: 99212; G0463

== ENCOUNTER 2020-12-08 16:07 | Inpatient (IN) ==
[2020-12-08] MEDS ORDERED: Piperacillin/Tazobac ADVAN 3.375 GM in NS 0.9% 100 ml BAG 100 ML IVPB ONE (16:37)
[2020-12-08] MEDS ORDERED: NORMOSOL-R pH 7.4 1000 mL BAG 1,000 ML IV SCH ×3 (17:00→20:00)
[2020-12-08 17:07] LABS: ABS Lymphocytes 0.4 10^3/ul (1.0-4.8); ABS Monocytes 0.9 10^3/ul (0-0.8); ABS Neutrophils 13.8 10^3/ul (1.5-7.7); Eosinophil % 0.3 %; Hematocrit 45 % (42-52); Hemoglobin 15.6 g/dL (14.0-18.0); Lymphocyte % 2.4 %; Mean Corpuscular HGB Conc 34 g/dL (31-36); Mean Corpuscular Hemoglobin 31 pg (27-31); Mean Corpuscular Volume 91 fL (80-94); Mean Platelet Volume 6.9 fL (7.4-10.4); Nucleated Red Blood Cells % 0.1; Platelet Count 288 10^3/uL (150-450); Red Cell Distribution Width 14 % (10-15); White Blood Count 15.2 10^3/uL (3.5-10.8)
[2020-12-08 17:20] LABS: ALT 56 U/L (7-52); AST 35 U/L (13-39); Albumin 3.5 g/dL (3.2-5.2); Albumin/Globulin Ratio 0.9 (1-3); Alkaline Phosphatase 110 U/L (35-149); Blood Urea Nitrogen 77 mg/dL (6-24); C Reactive Protein 135.26 mg/L (<8.01); Calcium 9.6 mg/dL (8.6-10.3); Chloride 88 mmol/L (101-111); Creatine Kinase 633 U/L (10-223); EGFR African American 48.8 (>60); EGFR Non-African American 40.4 (>60); Glucose 421 mg/dL (70-100); Total Protein 7.5 g/dL (6.4-8.9)
[2020-12-08 17:28] LABS: Activated Partial Thrombo Time 27.8 seconds (26.0-38.0)
[2020-12-08 17:30] LABS: Anion Gap 12 mmol/L (2-11); CO2 Carbon Dioxide 13 mmol/L (22-32); Sodium 113 mmol/L (135-145)
[2020-12-08 17:32] LABS: Troponin I 0.03 ng/mL (<0.03)
[2020-12-08 17:52] LABS: Urine Appearance Turbid; Urine Bilirubin Negative (Negative); Urine Blood 2+ (Negative); Urine Color Amber; Urine Glucose 3+(>=500 mg/dL) (Negative); Urine Ketones Trace (Negative); Urine Nitrite Negative (Negative); Urine Protein 3+(>=500 mg/dL) (Negative); Urine Specific Gravity 1.007 (1.002-1.030); Urine Urobilinogen Negative (Negative)
[2020-12-08] MEDS ORDERED: Dextrose 50% Syringe 50 ml 25 GM/50 ML SYRINGE IV PUSH PRN (18:09)
[2020-12-08 18:35] LABS: Urine Bacteria 1+ (Absent); Urine Red Blood Cell Trace(0-2/hpf) (Absent); Urine White Blood Cell 3+(>20/hpf) (Absent)
[2020-12-08] MEDS: Enoxaparin 40 MG/0.4 ML SYR SUBCUT SCH (20:29)
[2020-12-08 21:39] LABS: PCO2 Arterial 21 mmHg (35-45); PO2 Arterial 81 mmHg (80-100)
[2020-12-08 21:45] LABS: Anion Gap 10 mmol/L (2-11); Blood Urea Nitrogen 70 mg/dL (6-24); CO2 Carbon Dioxide 18 mmol/L (22-32); Calcium 8.7 mg/dL (8.6-10.3); Chloride 92 mmol/L (101-111); EGFR African American 51.2 (>60); EGFR Non-African American 42.3 (>60); Glucose 308 mg/dL (70-100); Potassium 4.4 mmol/L (3.5-5.0); Sodium 120 mmol/L (135-145)
[2020-12-08 21:50] LABS: Troponin I 0.04 ng/mL (<0.03)
[2020-12-08] MEDS: D5W 500 ml BAG 500 ML IV ONE (22:44)
[2020-12-08] MEDS: Multivitamins/Minerals TAB PO SCH (22:52)
[2020-12-08] MEDS ORDERED: Thiamine 100 MG/ML 2 ml VIAL 100 MG in NS 0.9% 50 ML 50 ML IV SCH (23:00)
[2020-12-08 23:24] LABS: Magnesium 2.6 mg/dL (1.9-2.7); Phosphorus 5.1 mg/dL (2.5-5.0)
[2020-12-08 23:57] LABS: Alcohol, S < 10 mg/dL (<10)
[2020-12-09 00:38] LABS: EGFR African American 52.7 (>60); EGFR Non-African American 43.5 (>60)
[2020-12-09] MEDS ORDERED: Insulin GLARGINE 100 un/ml 10 ml VIAL SUBCUT ONE (00:52)
[2020-12-09 03:07] LABS: ABS Eosinophils 0.1 10^3/ul (0-0.6); ABS Lymphocytes 0.5 10^3/ul (1.0-4.8); ABS Monocytes 0.7 10^3/ul (0-0.8); ABS Neutrophils 9.8 10^3/ul (1.5-7.7); Eosinophil % 0.9 %; Hematocrit 38 % (42-52); Hemoglobin 13.3 g/dL (14.0-18.0); Lymphocyte % 4.5 %; Mean Corpuscular HGB Conc 35 g/dL (31-36); Mean Corpuscular Hemoglobin 31 pg (27-31); Mean Corpuscular Volume 89 fL (80-94); Mean Platelet Volume 6.9 fL (7.4-10.4); Nucleated Red Blood Cells % 0.1; Platelet Count 242 10^3/uL (150-450); Red Blood Count 4.26 10^6 /uL (4.18-5.48); Red Cell Distribution Width 14 % (10-15); White Blood Count 11.2 10^3/uL (3.5-10.8)
[2020-12-09 03:27] LABS: Blood Urea Nitrogen 66 mg/dL (6-24); CO2 Carbon Dioxide 17 mmol/L (22-32); Calcium 8.5 mg/dL (8.6-10.3); Chloride 92 mmol/L (101-111); EGFR African American 50.9 (>60); Glucose 304 mg/dL (70-100); Potassium 4.1 mmol/L (3.5-5.0)
[2020-12-09 03:32] LABS: Anion Gap 9 mmol/L (2-11); Troponin I 0.03 ng/mL (<0.03)
[2020-12-09 03:38] LABS: Sodium 118 mmol/L (135-145)
[2020-12-09] MEDS ORDERED: Zosyn per Pharmacy NOTE FOLLOW UP SCH (06:00)
[2020-12-09] MEDS ORDERED: ZOSYN 3.375 GM x ONE DOSE over 30 miuntes IV (06:00)
[2020-12-09 06:42] LABS: Calcium 8.4 mg/dL (8.6-10.3); Potassium 4.1 mmol/L (3.5-5.0)
[2020-12-09] MEDS ORDERED: D5W 500 ml BAG 500 ML IV ONE (06:46)
[2020-12-09 06:48] LABS: EGFR African American 51.9 (>60); EGFR Non-African American 42.9 (>60)
[2020-12-09] MEDS: Multivitamins/Minerals TAB PO SCH (09:54)
[2020-12-09 09:57] LABS: Calcium 8.5 mg/dL (8.6-10.3); EGFR African American 50.9 (>60); Potassium 4.1 mmol/L (3.5-5.0)
[2020-12-09 09:59] LABS: Troponin I 0.02 ng/mL (<0.03)
[2020-12-09] MEDS ORDERED: ZOSYN 3.375 GM Q8H per EXTENDED INFUSION IV SCH (10:00)
[2020-12-09] MEDS ORDERED: Perflutren Lipid Microsphere 3 ML VIAL ONE (15:23)
[2020-12-09 17:22] LABS: Calcium 8.4 mg/dL (8.6-10.3); EGFR African American 53.4 (>60); EGFR Non-African American 44.1 (>60); Potassium 4.5 mmol/L (3.5-5.0)
[2020-12-09] MEDS: Enoxaparin 40 MG/0.4 ML SYR SUBCUT SCH (18:02)
[2020-12-09] MEDS ORDERED: NS 0.9% 1000 ml BAG 1,000 ML IV SCH ×2 (18:15→20:55)
[2020-12-09] MEDS: cefTRIAXone 1 gm/50 mL NS BAG 1 GM/50 ML BAG IVPB SCH (18:19)
[2020-12-09] MEDS: Thiamine 100 MG/ML 2 ml VIAL 100 MG in NS 0.9% 50 ML 50 ML IV SCH (22:37)
[2020-12-09 23:55] LABS: Calcium 7.6 mg/dL (8.6-10.3); Chloride 96 mmol/L (101-111)
[2020-12-10 00:01] LABS: Blood Urea Nitrogen 55 mg/dL (6-24); EGFR African American 55.8 (>60); EGFR Non-African American 46.1 (>60); Glucose 209 mg/dL (70-100)
[2020-12-10 00:04] LABS: Anion Gap 11 mmol/L (2-11); CO2 Carbon Dioxide 9 mmol/L (22-32); Sodium 116 mmol/L (135-145)
[2020-12-10 00:47] LABS: PCO2 Arterial 24 mmHg (35-45); PO2 Arterial 89 mmHg (80-100)
[2020-12-10 02:44] LABS: Urine Potassium Concentration 16.6 mmol/L
[2020-12-10 04:11] LABS: Magnesium 2.2 mg/dL (1.9-2.7); Potassium Redraw 4.2 mmol/L (3.5-5.0)
[2020-12-10 04:52] LABS: TSH Ultra Thyroid Stim Horm 2.47 mcIU/mL (0.34-5.60)
[2020-12-10 05:15] LABS: Calcium 8.6 mg/dL (8.6-10.3); Potassium 4.2 mmol/L (3.5-5.0)
[2020-12-10 05:20] LABS: EGFR Non-African American 47.9 (>60)
[2020-12-10] MEDS ORDERED: NS 0.9% 1000 ml BAG 1,000 ML IV SCH (07:30)
[2020-12-10 08:36] LABS: ABS Eosinophils 0.1 10^3/ul (0-0.6); ABS Lymphocytes 0.5 10^3/ul (1.0-4.8); ABS Monocytes 0.9 10^3/ul (0-0.8); ABS Neutrophils 9.1 10^3/ul (1.5-7.7); Eosinophil % 1.1 %; Hematocrit 39 % (42-52); Hemoglobin 13.2 g/dL (14.0-18.0); Lymphocyte % 4.5 %; Mean Corpuscular HGB Conc 34 g/dL (31-36); Mean Corpuscular Hemoglobin 31 pg (27-31); Mean Corpuscular Volume 92 fL (80-94); Mean Platelet Volume 6.7 fL (7.4-10.4); Nucleated Red Blood Cells % 0.1; Platelet Count 214 10^3/uL (150-450); Red Blood Count 4.21 10^6 /uL (4.18-5.48); Red Cell Distribution Width 14 % (10-15); White Blood Count 10.6 10^3/uL (3.5-10.8)
[2020-12-10 08:45] LABS: Calcium 8.1 mg/dL (8.6-10.3); Magnesium 2.1 mg/dL (1.9-2.7); Potassium 3.7 mmol/L (3.5-5.0)
[2020-12-10 08:51] LABS: EGFR African American 69.6 (>60); EGFR Non-African American 57.5 (>60); Phosphorus 3.3 mg/dL (2.5-5.0)
[2020-12-10] MEDS: Multivitamins/Minerals TAB PO SCH (08:58)
[2020-12-10 10:39] LABS: Urine Appearance Cloudy; Urine Bilirubin Negative (Negative); Urine Blood 3+ (Negative); Urine Color Yellow; Urine Glucose 1+(50 mg/dL) (Negative); Urine Ketones Trace (Negative); Urine Nitrite Negative (Negative); Urine Protein 2+(100 mg/dL) (Negative); Urine Specific Gravity 1.009 (1.002-1.030); Urine Urobilinogen Negative (Negative)
[2020-12-10 11:04] LABS: Urine Bacteria Absent (Absent); Urine Red Blood Cell 3+(>10/hpf) (Absent); Urine White Blood Cell 3+(>20/hpf) (Absent)
[2020-12-10 15:15] LABS: Blood Urea Nitrogen 49 mg/dL (6-24); Calcium 8.5 mg/dL (8.6-10.3); Chloride 97 mmol/L (101-111); EGFR African American 62.3 (>60); EGFR Non-African American 51.4 (>60); Glucose 286 mg/dL (70-100); Sodium 122 mmol/L (135-145)
[2020-12-10 15:17] LABS: CO2 Carbon Dioxide 13 mmol/L (22-32)
[2020-12-10 15:20] LABS: Anion Gap 12 mmol/L (2-11)
[2020-12-10] MEDS: cefTRIAXone 1 gm/50 mL NS BAG 1 GM/50 ML BAG IVPB SCH (17:42)
[2020-12-10] MEDS: Enoxaparin 40 MG/0.4 ML SYR SUBCUT SCH (17:42)
[2020-12-10] MEDS ORDERED: NS 0.9% 50 ML 50 ML ONE (19:55)
[2020-12-10] MEDS: Thiamine 100 MG/ML 2 ml VIAL 100 MG in NS 0.9% 50 ML 50 ML IV SCH (20:03)
[2020-12-11 05:03] LABS: ABS Eosinophils 0.1 10^3/ul (0-0.6); ABS Lymphocytes 0.4 10^3/ul (1.0-4.8); ABS Monocytes 0.5 10^3/ul (0-0.8); ABS Neutrophils 6.5 10^3/ul (1.5-7.7); Eosinophil % 1.3 %; Hematocrit 36 % (42-52); Hemoglobin 12.4 g/dL (14.0-18.0); Lymphocyte % 5.2 %; Mean Corpuscular HGB Conc 35 g/dL (31-36); Mean Corpuscular Hemoglobin 31 pg (27-31); Mean Corpuscular Volume 90 fL (80-94); Mean Platelet Volume 6.8 fL (7.4-10.4); Platelet Count 217 10^3/uL (150-450); Red Blood Count 3.97 10^6 /uL (4.18-5.48); Red Cell Distribution Width 14 % (10-15); White Blood Count 7.6 10^3/uL (3.5-10.8)
[2020-12-11 05:19] LABS: Calcium 8.4 mg/dL (8.6-10.3); EGFR African American 73.6 (>60); EGFR Non-African American 60.8 (>60); Magnesium 1.9 mg/dL (1.9-2.7); Potassium 3.5 mmol/L (3.5-5.0)
[2020-12-11] MEDS ORDERED: Magnesium Sulfate 2 gm BAG 2 GM/50 ML BAG IVPB ONE (06:09)
[2020-12-11] MEDS ORDERED: Potassium Chlor 20 meq TAB.ER PO ONE (06:09)
[2020-12-11] MEDS: Multivitamins/Minerals TAB PO SCH (07:51)
[2020-12-11] MEDS: cefTRIAXone 1 gm/50 mL NS BAG 1 GM/50 ML BAG IVPB SCH (18:00)
[2020-12-11] MEDS: Enoxaparin 40 MG/0.4 ML SYR SUBCUT SCH (18:01)
[2020-12-11] MEDS: Thiamine 100 MG/ML 2 ml VIAL 100 MG in NS 0.9% 50 ML 50 ML IV SCH (21:29)
[2020-12-12 06:22] LABS: Calcium 8.5 mg/dL (8.6-10.3); EGFR African American 87.5 (>60); EGFR Non-African American 72.3 (>60); Magnesium 2.1 mg/dL (1.9-2.7); Phosphorus 2.6 mg/dL (2.5-5.0); Potassium 3.8 mmol/L (3.5-5.0)
[2020-12-12] MEDS: Multivitamins/Minerals TAB PO SCH (08:27)
[2020-12-12 09:58] LABS: ABS Eosinophils 0.1 10^3/ul (0-0.6); ABS Lymphocytes 0.2 10^3/ul (1.0-4.8); ABS Monocytes 0.4 10^3/ul (0-0.8); ABS Neutrophils 6.8 10^3/ul (1.5-7.7); Eosinophil % 1.1 %; Hematocrit 34 % (42-52); Hemoglobin 12.1 g/dL (14.0-18.0); Lymphocyte % 3.1 %; Mean Corpuscular HGB Conc 35 g/dL (31-36); Mean Corpuscular Hemoglobin 32 pg (27-31); Mean Corpuscular Volume 90 fL (80-94); Mean Platelet Volume 6.9 fL (7.4-10.4); Nucleated Red Blood Cells % 0.2; Platelet Count 221 10^3/uL (150-450); Red Blood Count 3.82 10^6 /uL (4.18-5.48); Red Cell Distribution Width 14 % (10-15); White Blood Count 7.5 10^3/uL (3.5-10.8)
[2020-12-12] MEDS: cefTRIAXone 1 gm/50 mL NS BAG 1 GM/50 ML BAG IVPB SCH (17:45)
[2020-12-12] MEDS: Enoxaparin 40 MG/0.4 ML SYR SUBCUT SCH (17:45)
[2020-12-12] MEDS: Thiamine 100 MG/ML 2 ml VIAL 100 MG in NS 0.9% 50 ML 50 ML IV SCH (20:26)
[2020-12-12] MEDS ORDERED: Insulin GLARGINE 100 un/ml 10 ml VIAL SUBCUT SCH (21:00)
[2020-12-13 07:21] LABS: ABS Eosinophils 0.2 10^3/ul (0-0.6); ABS Lymphocytes 0.5 10^3/ul (1.0-4.8); ABS Monocytes 0.5 10^3/ul (0-0.8); ABS Neutrophils 5.6 10^3/ul (1.5-7.7); Eosinophil % 2.6 %; Hematocrit 32 % (42-52); Hemoglobin 11.7 g/dL (14.0-18.0); Lymphocyte % 7.5 %; Mean Corpuscular HGB Conc 36 g/dL (31-36); Mean Corpuscular Hemoglobin 32 pg (27-31); Mean Corpuscular Volume 89 fL (80-94); Mean Platelet Volume 6.7 fL (7.4-10.4); Nucleated Red Blood Cells % 0.1; Platelet Count 240 10^3/uL (150-450); Red Blood Count 3.63 10^6 /uL (4.18-5.48); Red Cell Distribution Width 14 % (10-15); White Blood Count 6.8 10^3/uL (3.5-10.8)
[2020-12-13 07:36] LABS: Calcium 8.5 mg/dL (8.6-10.3); EGFR African American 92.5 (>60); EGFR Non-African American 76.5 (>60); Potassium 3.5 mmol/L (3.5-5.0)
[2020-12-13] MEDS: Multivitamins/Minerals TAB PO SCH (08:19)
[2020-12-13 15:31] LABS: Immunoglobulin G1 356 mg/dL (341 - 894); Immunoglobulin G2 185 mg/dL (171 - 632); Immunoglobulin G3 41.7 mg/dL; Immunoglobulin G4 29.6 mg/dL
[2020-12-13] MEDS: Enoxaparin 40 MG/0.4 ML SYR SUBCUT SCH (17:08)
[2020-12-13] MEDS: cefTRIAXone 1 gm/50 mL NS BAG 1 GM/50 ML BAG IVPB SCH (17:09)
[2020-12-13] MEDS ORDERED: Insulin GLARGINE 100 un/ml 10 ml VIAL SUBCUT SCH (21:00)
[2020-12-13] MEDS: Thiamine 100 MG/ML 2 ml VIAL 100 MG in NS 0.9% 50 ML 50 ML IV SCH (21:12)
[2020-12-13] MEDS: Senna TAB 8.6 mg TAB PO SCH ×2 (21:13→21:16)
[2020-12-14 06:30] LABS: Calcium 8.4 mg/dL (8.6-10.3); EGFR African American 89.4 (>60); EGFR Non-African American 73.9 (>60); Potassium 3.6 mmol/L (3.5-5.0)
[2020-12-14] MEDS: Multivitamins/Minerals TAB PO SCH (08:56)
[2020-12-14] MEDS: Enoxaparin 40 MG/0.4 ML SYR SUBCUT SCH (17:22)
[2020-12-14] MEDS: cefTRIAXone 1 gm/50 mL NS BAG 1 GM/50 ML BAG IVPB SCH (17:22)
[2020-12-14] MEDS: Thiamine 100 MG/ML 2 ml VIAL 100 MG in NS 0.9% 50 ML 50 ML IV SCH (20:16)
[2020-12-14] MEDS: Senna TAB 8.6 mg TAB PO SCH (20:16)
[2020-12-15 06:30] LABS: Calcium 8.7 mg/dL (8.6-10.3); EGFR African American 95.9 (>60); EGFR Non-African American 79.2 (>60); Potassium 3.4 mmol/L (3.5-5.0)
[2020-12-15] MEDS: Multivitamins/Minerals TAB PO SCH (07:39)
[2020-12-15] MEDS: Potassium Chlor 20 meq TAB.ER PO SCH ×2 (07:42→19:55)
[2020-12-15] MEDS: cefTRIAXone 1 gm/50 mL NS BAG 1 GM/50 ML BAG IVPB SCH (16:56)
[2020-12-15] MEDS: Enoxaparin 40 MG/0.4 ML SYR SUBCUT SCH (16:57)
[2020-12-15] MEDS: Senna TAB 8.6 mg TAB PO SCH (19:51)
[2020-12-15] MEDS: Thiamine 100 MG/ML 2 ml VIAL 100 MG in NS 0.9% 50 ML 50 ML IV SCH (19:56)
[2020-12-16] MEDS: Multivitamins/Minerals TAB PO SCH (09:24)
[2020-12-16 09:41] LABS: ABS Eosinophils 0.1 10^3/ul (0-0.6); ABS Lymphocytes 0.5 10^3/ul (1.0-4.8); ABS Monocytes 0.5 10^3/ul (0-0.8); ABS Neutrophils 4.1 10^3/ul (1.5-7.7); Eosinophil % 2.7 %; Hematocrit 32 % (42-52); Hemoglobin 11.2 g/dL (14.0-18.0); Lymphocyte % 8.9 %; Mean Corpuscular HGB Conc 35 g/dL (31-36); Mean Corpuscular Hemoglobin 31 pg (27-31); Mean Corpuscular Volume 89 fL (80-94); Mean Platelet Volume 6.4 fL (7.4-10.4); Nucleated Red Blood Cells % 0.1; Platelet Count 277 10^3/uL (150-450); Red Blood Count 3.57 10^6 /uL (4.18-5.48); Red Cell Distribution Width 14 % (10-15); White Blood Count 5.3 10^3/uL (3.5-10.8)
[2020-12-16 09:55] LABS: Calcium 8.5 mg/dL (8.6-10.3); EGFR African American 91.5 (>60); EGFR Non-African American 75.6 (>60); Potassium 4.1 mmol/L (3.5-5.0)
[2020-12-16] MEDS: Cefepime 2 GM in Dextrose 2 GM/50 ML BAG IV SCH ×2 (10:40→23:25)
[2020-12-16 11:08] LABS: Albumin/Globulin Ratio 0.66; Gamma Globulin 0.7 g/dL (0.6-1.6)
[2020-12-16] MEDS: Enoxaparin 40 MG/0.4 ML SYR SUBCUT SCH (18:13)
[2020-12-16] MEDS: Senna TAB 8.6 mg TAB PO SCH (21:17)
[2020-12-16] MEDS: Thiamine 100 MG/ML 2 ml VIAL 100 MG in NS 0.9% 50 ML 50 ML IV SCH (21:17)
[2020-12-17 04:03] LABS: Urine Appearance Clear; Urine Bilirubin Negative (Negative); Urine Blood 1+ (Negative); Urine Color Straw; Urine Glucose Negative (Negative); Urine Ketones Negative (Negative); Urine Nitrite Negative (Negative); Urine Protein 1+(30 mg/dL) (Negative); Urine Specific Gravity 1.003 (1.002-1.030); Urine Urobilinogen Negative (Negative)
[2020-12-17 04:59] LABS: ABS Eosinophils 0.2 10^3/ul (0-0.6); ABS Lymphocytes 0.5 10^3/ul (1.0-4.8); ABS Monocytes 0.5 10^3/ul (0-0.8); ABS Neutrophils 4.7 10^3/ul (1.5-7.7); Eosinophil % 3.6 %; Hematocrit 34 % (42-52); Hemoglobin 11.8 g/dL (14.0-18.0); Lymphocyte % 9.1 %; Mean Corpuscular HGB Conc 35 g/dL (31-36); Mean Corpuscular Hemoglobin 31 pg (27-31); Mean Corpuscular Volume 90 fL (80-94); Mean Platelet Volume 6.4 fL (7.4-10.4); Platelet Count 294 10^3/uL (150-450); Red Blood Count 3.79 10^6 /uL (4.18-5.48); Red Cell Distribution Width 14 % (10-15)
[2020-12-17 05:21] LABS: C Reactive Protein 107.6 mg/L (<8.01); Calcium 8.8 mg/dL (8.6-10.3); EGFR African American 89.4 (>60); EGFR Non-African American 73.9 (>60); Potassium 3.5 mmol/L (3.5-5.0)
[2020-12-17] MEDS: Multivitamins/Minerals TAB PO SCH (08:17)
[2020-12-17] MEDS: Cefepime 2 GM in Dextrose 2 GM/50 ML BAG IV SCH ×2 (10:56→22:12)
[2020-12-17] MEDS: Enoxaparin 40 MG/0.4 ML SYR SUBCUT SCH (17:47)
[2020-12-17] MEDS: Thiamine 100 MG/ML 2 ml VIAL 100 MG in NS 0.9% 50 ML 50 ML IV SCH (21:12)
[2020-12-17] MEDS: Senna TAB 8.6 mg TAB PO SCH (21:12)
[2020-12-18] MEDS: Multivitamins/Minerals TAB PO SCH (10:31)
[2020-12-18] MEDS: Cefepime 2 GM in Dextrose 2 GM/50 ML BAG IV SCH (10:32)
[2020-12-18] MEDS ORDERED: Piperacillin/Tazobac ADVAN 3.375 GM in NS 0.9% 100 ml BAG 100 ML IV ONE (17:15)
[2020-12-18] MEDS: Enoxaparin 40 MG/0.4 ML SYR SUBCUT SCH (17:44)
[2020-12-18] MEDS ORDERED: Zosyn per Pharmacy NOTE FOLLOW UP SCH (18:00)
[2020-12-18] MEDS: Thiamine 100 MG/ML 2 ml VIAL 100 MG in NS 0.9% 50 ML 50 ML IV SCH (20:27)
[2020-12-18] MEDS: Senna TAB 8.6 mg TAB PO SCH (20:32)
[2020-12-18] MEDS: ZOSYN 3.375 GM Q8H per EXTENDED INFUSION IV SCH (22:19)
[2020-12-19] MEDS: ZOSYN 3.375 GM Q8H per EXTENDED INFUSION IV SCH ×3 (05:38→21:22)
[2020-12-19 05:52] LABS: ABS Eosinophils 0.2 10^3/ul (0-0.6); ABS Lymphocytes 0.6 10^3/ul (1.0-4.8); ABS Monocytes 0.5 10^3/ul (0-0.8); ABS Neutrophils 4.1 10^3/ul (1.5-7.7); Eosinophil % 4.4 %; Hematocrit 33 % (42-52); Hemoglobin 11.2 g/dL (14.0-18.0); Lymphocyte % 10.6 %; Mean Corpuscular HGB Conc 34 g/dL (31-36); Mean Corpuscular Hemoglobin 31 pg (27-31); Mean Corpuscular Volume 90 fL (80-94); Mean Platelet Volume 6.6 fL (7.4-10.4); Nucleated Red Blood Cells % 0.1; Platelet Count 356 10^3/uL (150-450); Red Blood Count 3.61 10^6 /uL (4.18-5.48); Red Cell Distribution Width 14 % (10-15); White Blood Count 5.4 10^3/uL (3.5-10.8)
[2020-12-19 06:09] LABS: Calcium 8.5 mg/dL (8.6-10.3); EGFR African American 86.5 (>60); EGFR Non-African American 71.5 (>60); Potassium 3.6 mmol/L (3.5-5.0)
[2020-12-19] MEDS: Multivitamins/Minerals TAB PO SCH (08:43)
[2020-12-19] MEDS: Enoxaparin 40 MG/0.4 ML SYR SUBCUT SCH (17:38)
[2020-12-19] MEDS: Thiamine 100 MG/ML 2 ml VIAL 100 MG in NS 0.9% 50 ML 50 ML IV SCH (20:51)
[2020-12-19] MEDS: Senna TAB 8.6 mg TAB PO SCH (21:02)
[2020-12-20] MEDS: ZOSYN 3.375 GM Q8H per EXTENDED INFUSION IV SCH (05:16)
[2020-12-20 05:52] LABS: Urine Appearance Cloudy; Urine Bilirubin Negative (Negative); Urine Blood 1+ (Negative); Urine Color Straw; Urine Glucose 1+(50 mg/dL) (Negative); Urine Ketones Negative (Negative); Urine Nitrite Negative (Negative); Urine Protein 2+(100 mg/dL) (Negative); Urine Specific Gravity 1.006 (1.002-1.030); Urine Urobilinogen Negative (Negative)
[2020-12-20 06:03] LABS: Urine Bacteria Absent (Absent); Urine Red Blood Cell 3+(>10/hpf) (Absent); Urine White Blood Cell 1+(6-10/hpf) (Absent); Urine Yeast Present (Absent)
[2020-12-20 06:41] LABS: Calcium 8.5 mg/dL (8.6-10.3); EGFR African American 111.6 (>60); EGFR Non-African American 92.3 (>60); Potassium 3.4 mmol/L (3.5-5.0)
[2020-12-20 08:21] LABS: C Reactive Protein 48.48 mg/L (<8.01)
[2020-12-20] MEDS ORDERED: Potassium Chlor 20 meq TAB.ER PO ONE (08:41)
[2020-12-20] MEDS: Multivitamins/Minerals TAB PO SCH (10:14)
[2020-12-20] MEDS: Enoxaparin 40 MG/0.4 ML SYR SUBCUT SCH (17:14)
[2020-12-20] MEDS: Senna TAB 8.6 mg TAB PO SCH (21:35)
[2020-12-20] MEDS: Thiamine 100 MG/ML 2 ml VIAL 100 MG in NS 0.9% 50 ML 50 ML IV SCH (23:00)
[2020-12-21 06:16] LABS: Calcium 8.4 mg/dL (8.6-10.3); EGFR African American 104.5 (>60); EGFR Non-African American 86.4 (>60); Potassium 3.8 mmol/L (3.5-5.0)
[2020-12-21] MEDS: Multivitamins/Minerals TAB PO SCH (07:35)
[2020-12-21] MEDS: Enoxaparin 40 MG/0.4 ML SYR SUBCUT SCH (17:34)
[2020-12-21] MEDS: Senna TAB 8.6 mg TAB PO SCH (19:58)
[2020-12-22] MEDS: Multivitamins/Minerals TAB PO SCH (08:24)
[2020-12-22] MEDS: Enoxaparin 40 MG/0.4 ML SYR SUBCUT SCH (17:36)
[2020-12-22] MEDS: Senna TAB 8.6 mg TAB PO SCH (19:39)
[2020-12-23] MEDS: Multivitamins/Minerals TAB PO SCH (08:23)
[2020-12-23 14:55] LABS: Hematocrit 32 % (42-52); Hemoglobin 10.9 g/dL (14.0-18.0); Mean Corpuscular HGB Conc 35 g/dL (31-36); Mean Corpuscular Hemoglobin 31 pg (27-31); Mean Corpuscular Volume 89 fL (80-94); Platelet Count 442 10^3/uL (150-450); Red Blood Count 3.55 10^6 /uL (4.18-5.48); Red Cell Distribution Width 15 % (10-15); White Blood Count 4.6 10^3/uL (3.5-10.8)
[2020-12-23 15:04] LABS: ABS Eosinophils 0.3 10^3/ul (0-0.6); ABS Lymphocytes 0.9 10^3/ul (1.0-4.8); ABS Monocytes 0.4 10^3/ul (0-0.8); ABS Neutrophils 3.1 10^3/ul (1.5-7.7); Eosinophil % 5.9 %; Nucleated Red Blood Cells % 0.2
[2020-12-23 15:42] LABS: Calcium 8.6 mg/dL (8.6-10.3); EGFR African American 89.4 (>60); EGFR Non-African American 73.9 (>60); Potassium 3.6 mmol/L (3.5-5.0)
[2020-12-23] MEDS: Enoxaparin 40 MG/0.4 ML SYR SUBCUT SCH (18:27)
[2020-12-23] MEDS: NS 0.9% 1000 ml BAG 1,000 ML IV SCH (18:28)
[2020-12-23] MEDS: Senna TAB 8.6 mg TAB PO SCH (19:15)
[2020-12-24 07:17] LABS: Calcium 8.3 mg/dL (8.6-10.3); EGFR African American 107.3 (>60); EGFR Non-African American 88.6 (>60); Potassium 3.6 mmol/L (3.5-5.0)
[2020-12-24] MEDS: Multivitamins/Minerals TAB PO SCH (08:45)
[2020-12-24] MEDS: NS 0.9% 1000 ml BAG 1,000 ML IV SCH (08:51)
[2020-12-24] MEDS: Enoxaparin 40 MG/0.4 ML SYR SUBCUT SCH (17:22)
[2020-12-24] MEDS: Senna TAB 8.6 mg TAB PO SCH (19:48)
[2020-12-25 07:24] LABS: EGFR Non-African American 86.4 (>60); Potassium 3.4 mmol/L (3.5-5.0)
[2020-12-25 07:25] LABS: Calcium 8.1 mg/dL (8.6-10.3); EGFR African American 104.5 (>60)
[2020-12-25] MEDS ORDERED: Potassium Chlor 20 meq TAB.ER PO ONE (07:38)
[2020-12-25] MEDS: Multivitamins/Minerals TAB PO SCH (09:04)
[2020-12-25] MEDS: Enoxaparin 40 MG/0.4 ML SYR SUBCUT SCH (17:43)
[2020-12-25] MEDS: Senna TAB 8.6 mg TAB PO SCH (22:42)
[2020-12-26] MEDS: Multivitamins/Minerals TAB PO SCH (08:35)
[2020-12-26] MEDS: Enoxaparin 40 MG/0.4 ML SYR SUBCUT SCH (17:26)
[2020-12-26] MEDS: Senna TAB 8.6 mg TAB PO SCH (22:06)
[2020-12-27] MEDS: Multivitamins/Minerals TAB PO SCH (08:54)
[2020-12-27 10:15] VITALS: BP 147/88
== END 2020-12-27 10:19 | disposition swing bed (61) | DRG 720 ==
LOC: ED 16:07 → ICU 17:59 → MEDTELE 12-09 12:52 → ICU 12-10 03:25 → MEDTELE 12-11 11:29 → MED 12-18 15:20
PROVIDERS: ADMIT Internal Medicine; ATTEND Internal Medicine

== ENCOUNTER 2020-12-27 10:19 | Inpatient (IN) ==
[2020-12-27] MEDS ORDERED: Dextrose 50% Syringe 50 ml 25 GM/50 ML SYRINGE IV PUSH PRN (12:46)
[2020-12-27] MEDS: Enoxaparin 40 MG/0.4 ML SYR SUBCUT SCH (13:13)
[2020-12-28] MEDS: Enoxaparin 40 MG/0.4 ML SYR SUBCUT SCH (13:26)
[2020-12-29] MEDS ORDERED: Dextrose 50% Syringe 50 ml 25 GM/50 ML SYRINGE IV PUSH PRN (12:31)
[2020-12-29] MEDS: Enoxaparin 40 MG/0.4 ML SYR SUBCUT SCH (12:55)
[2020-12-29] MEDS ORDERED: Iodixanol (CONTRAST) 320 MG/ML 100 ML SDV IV ONE (16:07)
[2020-12-29 16:23] LABS: ABS Basophils 0.1 10^3/ul (0-0.2); ABS Eosinophils 0.3 10^3/ul (0-0.6); ABS Lymphocytes 1.9 10^3/ul (1.0-4.8); ABS Monocytes 1.1 10^3/ul (0-0.8); ABS Neutrophils 6.9 10^3/ul (1.5-7.7); Hematocrit 28 % (42-52); Hemoglobin 9.6 g/dL (14.0-18.0); Lymphocyte % 18.3 %; Mean Corpuscular HGB Conc 35 g/dL (31-36); Mean Corpuscular Hemoglobin 31 pg (27-31); Mean Corpuscular Volume 89 fL (80-94); Mean Platelet Volume 6.1 fL (7.4-10.4); Platelet Count 310 10^3/uL (150-450); Red Blood Count 3.12 10^6 /uL (4.18-5.48); Red Cell Distribution Width 15 % (10-15); White Blood Count 10.2 10^3/uL (3.5-10.8)
[2020-12-29 16:40] LABS: Albumin 3.1 g/dL (3.2-5.2); Calcium 8.1 mg/dL (8.6-10.3); EGFR African American 83.8 (>60); EGFR Non-African American 69.2 (>60); Globulin 3.1 g/dL (2-4); Potassium 3.5 mmol/L (3.5-5.0); Total Bilirubin 0.4 mg/dL (0.2-1.0); Total Protein 6.2 g/dL (6.4-8.9)
[2020-12-29] MEDS ORDERED: Alteplase (100 mg Vial) 100 mg VIAL IV ONE ×2 (17:03)
[2020-12-29] MEDS ORDERED: Labetalol IV 5 MG/ML 20 ml VIAL IV PUSH ONE (17:03)
[2020-12-29] MEDS ORDERED: diPHENhydraMINE IV 50 MG/ML 1 ml VIAL (BENADRYL) SLOW PUSH ONE (17:37)
[2020-12-29] MEDS ORDERED: diPHENhydraMINE IV 50 MG/ML 1 ml VIAL (BENADRYL) ONE (17:38)
[2020-12-29] MEDS ORDERED: niCARdipine 0.1MG/ML IVPREMIX 20 MG/200 ML BAG IV SCH ×2 (18:00→19:00)
[2020-12-29] MEDS ORDERED: Vancomycin 1,000 MG in NS 0.9% 250 ml 250 ML IVPB ONE (19:32)
[2020-12-29] MEDS ORDERED: Acetaminophen IV 1 GM/100ML 100 ML IV PRN (19:34)
[2020-12-29] MEDS ORDERED: Vancomycin per Pharmacy 1 EA NOTE FOLLOW UP SCH (20:00)
[2020-12-29 20:15] LABS: Urine Appearance Cloudy; Urine Bilirubin Negative (Negative); Urine Blood 2+ (Negative); Urine Color Yellow; Urine Glucose Negative (Negative); Urine Ketones Negative (Negative); Urine Nitrite Positive (Negative); Urine Protein 2+(100 mg/dL) (Negative); Urine Specific Gravity 1.015 (1.002-1.030); Urine Urobilinogen Negative (Negative)
[2020-12-29 20:58] LABS: Urine Bacteria Absent (Absent); Urine Red Blood Cell 3+(>10/hpf) (Absent); Urine White Blood Cell 3+(>20/hpf) (Absent); Urine Yeast Present (Absent)
[2020-12-29] MEDS: Cefepime 2 GM in Dextrose 2 GM/50 ML BAG IV SCH (21:03)
[2020-12-30 00:49] LABS: ABS Basophils 0.1 10^3/ul (0-0.2); ABS Eosinophils 0.1 10^3/ul (0-0.6); ABS Lymphocytes 1.6 10^3/ul (1.0-4.8); ABS Neutrophils 8.4 10^3/ul (1.5-7.7); Eosinophil % 1.1 %; Hematocrit 29 % (42-52); Hemoglobin 10.2 g/dL (14.0-18.0); Lymphocyte % 14.4 %; Mean Corpuscular HGB Conc 36 g/dL (31-36); Mean Corpuscular Hemoglobin 31 pg (27-31); Mean Corpuscular Volume 88 fL (80-94); Nucleated Red Blood Cells % 0.1; Platelet Count 303 10^3/uL (150-450); Red Blood Count 3.27 10^6 /uL (4.18-5.48); Red Cell Distribution Width 15 % (10-15); White Blood Count 11.2 10^3/uL (3.5-10.8)
[2020-12-30 01:03] LABS: EGFR African American 87.5 (>60); EGFR Non-African American 72.3 (>60); Potassium 3.7 mmol/L (3.5-5.0)
[2020-12-30 04:46] LABS: ABS Eosinophils 0.1 10^3/ul (0-0.6); ABS Lymphocytes 1.3 10^3/ul (1.0-4.8); ABS Monocytes 1.1 10^3/ul (0-0.8); ABS Neutrophils 6.5 10^3/ul (1.5-7.7); Eosinophil % 1.5 %; Hematocrit 31 % (42-52); Hemoglobin 10.7 g/dL (14.0-18.0); Lymphocyte % 14.6 %; Mean Corpuscular HGB Conc 35 g/dL (31-36); Mean Corpuscular Hemoglobin 31 pg (27-31); Mean Corpuscular Volume 88 fL (80-94); Mean Platelet Volume 6.1 fL (7.4-10.4); Platelet Count 301 10^3/uL (150-450); Red Blood Count 3.46 10^6 /uL (4.18-5.48); Red Cell Distribution Width 15 % (10-15); White Blood Count 9.1 10^3/uL (3.5-10.8)
[2020-12-30 05:03] LABS: EGFR African American 95.9 (>60); EGFR Non-African American 79.2 (>60); Potassium 3.7 mmol/L (3.5-5.0)
[2020-12-30] MEDS ORDERED: KCL 20 MEQ/100 ML IVPREMIX 20 MEQ/100 ML BAG IV ONE (07:29)
[2020-12-30] MEDS: Cefepime 2 GM in Dextrose 2 GM/50 ML BAG IV SCH (07:51)
[2020-12-30 07:54] LABS: Magnesium 1.1 mg/dL (1.9-2.7); Phosphorus 3.7 mg/dL (2.5-5.0)
[2020-12-30] MEDS ORDERED: Vancomycin 1,250 MG in NS 0.9% 250 ml 250 ML IVPB SCH (09:00)
[2020-12-30] MEDS ORDERED: Dextrose 50% Syringe 50 ml 25 GM/50 ML SYRINGE IV PUSH PRN (09:45)
[2020-12-30] MEDS ORDERED: Magnesium Sulfate 2 gm BAG 2 GM/50 ML BAG IVPB ONE ×2 (10:36→10:37)
[2020-12-30] MEDS ORDERED: Magnesium Sulfate 4 GM IV IVPB ONE (11:00)
[2020-12-30 17:13] VITALS: BP 167/96
[2020-12-31] MEDS ORDERED: Vancomycin Trough Check NOTE FOLLOW UP ONE (08:30)
== END 2020-12-30 16:00 | disposition short-term general hospital (02) | DRG 720 ==
LOC: MED 10:19 → SSU 12-28 17:57 → ICU 12-29 16:13
PROVIDERS: ADMIT Internal Medicine; ATTEND Hospitalist

== ENCOUNTER 2020-12-30 13:15 | Inpatient (IN) ==
[2020-12-30] MEDS ORDERED: Dextrose 50% Syringe 50 ml 25 GM/50 ML SYRINGE IV PUSH PRN (19:18)
[2020-12-30] MEDS ORDERED: niCARdipine 0.1MG/ML IVPREMIX 20 MG/200 ML BAG IV SCH (20:00)
[2020-12-30] MEDS ORDERED: Vancomycin per Pharmacy 1 EA NOTE FOLLOW UP SCH (20:00)
[2020-12-30] MEDS: Cefepime 2 GM in Dextrose 2 GM/50 ML BAG IV SCH (21:02)
[2020-12-30] MEDS: Vancomycin 1,250 MG in NS 0.9% 250 ml 250 ML IVPB SCH (22:37)
[2020-12-31 04:53] LABS: Hematocrit 29 % (42-52); Hemoglobin 9.9 g/dL (14.0-18.0); Mean Corpuscular HGB Conc 34 g/dL (31-36); Mean Corpuscular Hemoglobin 31 pg (27-31); Mean Corpuscular Volume 89 fL (80-94); Mean Platelet Volume 6.5 fL (7.4-10.4); Platelet Count 284 10^3/uL (150-450); Red Blood Count 3.22 10^6 /uL (4.18-5.48); Red Cell Distribution Width 15 % (10-15)
[2020-12-31 05:12] LABS: Calcium 7.7 mg/dL (8.6-10.3); EGFR African American 89.4 (>60); EGFR Non-African American 73.9 (>60); Magnesium 2.3 mg/dL (1.9-2.7); Phosphorus 3.4 mg/dL (2.5-5.0); Potassium 3.8 mmol/L (3.5-5.0)
[2020-12-31] MEDS: Vancomycin 1,250 MG in NS 0.9% 250 ml 250 ML IVPB SCH ×2 (08:11→22:06)
[2020-12-31] MEDS ORDERED: Vancomycin Trough Check NOTE FOLLOW UP ONE (08:30)
[2020-12-31] MEDS: Cefepime 2 GM in Dextrose 2 GM/50 ML BAG IV SCH (10:03)
[2020-12-31] MEDS ORDERED: Piperacillin/Tazobac ADVAN 3.375 GM in NS 0.9% 100 ml BAG 100 ML IV ONE (11:30)
[2020-12-31] MEDS ORDERED: Zosyn per Pharmacy NOTE FOLLOW UP SCH (12:00)
[2020-12-31] MEDS ORDERED: ZOSYN 3.375 GM x ONE DOSE over 30 miuntes IV (13:00)
[2020-12-31] MEDS: ZOSYN 3.375 GM Q8H per EXTENDED INFUSION IV SCH (17:42)
[2020-12-31 21:19] LABS: Glucose Confirmatory 426 mg/dL (70-100)
[2021-01-01] MEDS: ZOSYN 3.375 GM Q8H per EXTENDED INFUSION IV SCH ×2 (00:28→09:18)
[2021-01-01] MEDS ORDERED: Vancomycin Trough Check NOTE FOLLOW UP ONE (08:30)
[2021-01-01] MEDS: Enoxaparin 40 MG/0.4 ML SYR SUBCUT SCH (08:42)
[2021-01-01 08:51] LABS: ABS Eosinophils 0.5 10^3/ul (0-0.6); ABS Lymphocytes 0.9 10^3/ul (1.0-4.8); ABS Monocytes 0.6 10^3/ul (0-0.8); ABS Neutrophils 3.8 10^3/ul (1.5-7.7); Eosinophil % 8.5 %; Hematocrit 30 % (42-52); Hemoglobin 9.9 g/dL (14.0-18.0); Lymphocyte % 14.9 %; Mean Corpuscular HGB Conc 33 g/dL (31-36); Mean Corpuscular Hemoglobin 30 pg (27-31); Mean Corpuscular Volume 90 fL (80-94); Mean Platelet Volume 6.4 fL (7.4-10.4); Nucleated Red Blood Cells % 0.1; Platelet Count 277 10^3/uL (150-450); Red Blood Count 3.29 10^6 /uL (4.18-5.48); Red Cell Distribution Width 15 % (10-15); White Blood Count 5.8 10^3/uL (3.5-10.8)
[2021-01-01 09:08] LABS: Albumin 2.9 g/dL (3.2-5.2); Albumin/Globulin Ratio 0.9 (1-3); Globulin 3.2 g/dL (2-4); Total Bilirubin 0.3 mg/dL (0.2-1.0); Total Protein 6.1 g/dL (6.4-8.9)
[2021-01-01] MEDS: Vancomycin 1,250 MG in NS 0.9% 250 ml 250 ML IVPB SCH (09:47)
[2021-01-01 17:57] LABS: C Reactive Protein 31.83 mg/L (<8.01)
[2021-01-01 21:10] LABS: Glucose Confirmatory 410 mg/dL (70-100)
[2021-01-02 06:59] LABS: Calcium 8.1 mg/dL (8.6-10.3); EGFR African American 90.5 (>60); EGFR Non-African American 74.8 (>60); Potassium 3.7 mmol/L (3.5-5.0)
[2021-01-02] MEDS: Enoxaparin 40 MG/0.4 ML SYR SUBCUT SCH (09:34)
[2021-01-03 06:11] LABS: ABS Eosinophils 0.5 10^3/ul (0-0.6); ABS Lymphocytes 1.6 10^3/ul (1.0-4.8); ABS Monocytes 0.5 10^3/ul (0-0.8); Eosinophil % 7.9 %; Hematocrit 28 % (42-52); Hemoglobin 9.7 g/dL (14.0-18.0); Lymphocyte % 24.1 %; Mean Corpuscular HGB Conc 35 g/dL (31-36); Mean Corpuscular Hemoglobin 31 pg (27-31); Mean Corpuscular Volume 88 fL (80-94); Mean Platelet Volume 6.2 fL (7.4-10.4); Platelet Count 281 10^3/uL (150-450); Red Blood Count 3.18 10^6 /uL (4.18-5.48); Red Cell Distribution Width 15 % (10-15); White Blood Count 6.6 10^3/uL (3.5-10.8)
[2021-01-03 06:29] LABS: Calcium 8.4 mg/dL (8.6-10.3); EGFR African American 104.5 (>60); EGFR Non-African American 86.4 (>60); Potassium 3.9 mmol/L (3.5-5.0)
[2021-01-03] MEDS: Enoxaparin 40 MG/0.4 ML SYR SUBCUT SCH (09:50)
[2021-01-03 11:36] VITALS: BP 149/83
== END 2021-01-03 14:06 | DRG 45 ==
LOC: SUATTDRO 16:00 → ICU 18:47 → MEDTELE 12-31 12:26
PROVIDERS: ADMIT Internal Medicine; ATTEND Hospitalist

== ENCOUNTER 2021-01-22 18:49 | Inpatient (IN) ==
[2021-01-22 21:14] LABS: ABS Eosinophils 0.1 10^3/ul (0-0.6); ABS Lymphocytes 1.4 10^3/ul (1.0-4.8); ABS Monocytes 0.5 10^3/ul (0-0.8); ABS Neutrophils 6.3 10^3/ul (1.5-7.7); Eosinophil % 1.5 %; Hematocrit 30 % (42-52); Hemoglobin 10.9 g/dL (14.0-18.0); Lymphocyte % 16.4 %; Mean Corpuscular HGB Conc 37 g/dL (31-36); Mean Corpuscular Hemoglobin 32 pg (27-31); Mean Corpuscular Volume 87 fL (80-94); Mean Platelet Volume 6.3 fL (7.4-10.4); Platelet Count 322 10^3/uL (150-450); Red Cell Distribution Width 16 % (10-15); White Blood Count 8.3 10^3/uL (3.5-10.8)
[2021-01-22 21:26] LABS: ALT 17 U/L (7-52); AST 14 U/L (13-39); Albumin 4.1 g/dL (3.2-5.2); Albumin/Globulin Ratio 1.3 (1-3); Alkaline Phosphatase 109 U/L (35-149); Blood Urea Nitrogen 11 mg/dL (6-24); CO2 Carbon Dioxide 18 mmol/L (22-32); Calcium 9.3 mg/dL (8.6-10.3); Chloride 90 mmol/L (101-111); EGFR African American 81.2 (>60); EGFR Non-African American 67.1 (>60); Globulin 3.2 g/dL (2-4); Glucose 264 mg/dL (70-100); Potassium 4.9 mmol/L (3.5-5.0); Total Protein 7.3 g/dL (6.4-8.9)
[2021-01-22 21:35] LABS: Anion Gap 8 mmol/L (2-11); Sodium 116 mmol/L (135-145)
[2021-01-23 00:34] LABS: Magnesium 1.8 mg/dL (1.9-2.7)
[2021-01-23] MEDS ORDERED: NS 0.9% 1000 ml BAG 1,000 ML IV SCH (00:45)
[2021-01-23] MEDS ORDERED: Dextrose 50% Syringe 50 ml 25 GM/50 ML SYRINGE IV PUSH PRN (00:47)
[2021-01-23] MEDS ORDERED: COVID-19 VACCINE, AD26(JANSSEN)/PF 0.5 ML IM ONE ×2 (01:23→14:00)
[2021-01-23 01:37] LABS: Acetaminophen < 15 mcg/mL; Alcohol, S < 13 mg/dL (<13); Salicylate < 2.50 mg/dL (<30)
[2021-01-23 01:52] LABS: Urine Appearance Cloudy; Urine Bilirubin Negative (Negative); Urine Blood 1+ (Negative); Urine Color Straw; Urine Glucose 1+(50 mg/dL) (Negative); Urine Ketones Negative (Negative); Urine Nitrite Negative (Negative); Urine Protein 1+(30 mg/dL) (Negative); Urine Specific Gravity 1.002 (1.002-1.030); Urine Urobilinogen Negative (Negative)
[2021-01-23 01:56] LABS: Urine Bacteria Absent (Absent); Urine Red Blood Cell Trace(0-2/hpf) (Absent); Urine White Blood Cell 1+(6-10/hpf) (Absent)
[2021-01-23 02:26] LABS: Urine Benzodiazepine Screen None Detected (None Detect); Urine Cannabinoids Screen None Detected (None Detect); Urine Opiates Screen None Detected (None Detect)
[2021-01-23] MEDS: Heparin 5000 UNITS/ML 1 mL VIAL SUBCUT SCH ×3 (05:34→20:57)
[2021-01-23 05:46] LABS: Calcium 8.6 mg/dL (8.6-10.3); EGFR African American 103.2 (>60); EGFR Non-African American 85.3 (>60); Potassium 3.8 mmol/L (3.5-5.0)
[2021-01-23] MEDS ORDERED: Magnesium Sulfate 2 gm BAG 2 GM/50 ML BAG IVPB ONE (07:08)
[2021-01-23] MEDS: Nicotine PATCH 21 MG/24 HR PATCH TRANSDERM SCH (08:14)
[2021-01-23 12:08] LABS: Calcium 8.6 mg/dL (8.6-10.3); EGFR Non-African American 80.2 (>60); Potassium 4.1 mmol/L (3.5-5.0)
[2021-01-23] MEDS ORDERED: COVID-19 VACCINE, MRNA(MODERNA)/PF 100 MCG/0.5 ML IM ONE (14:30)
[2021-01-23] MEDS: NS 0.9% 1000 ml BAG 1,000 ML IV SCH (19:59)
[2021-01-24 05:59] LABS: ABS Eosinophils 0.3 10^3/ul (0-0.6); ABS Lymphocytes 1.6 10^3/ul (1.0-4.8); ABS Monocytes 0.6 10^3/ul (0-0.8); ABS Neutrophils 4.7 10^3/ul (1.5-7.7); Eosinophil % 3.7 %; Hematocrit 28 % (42-52); Hemoglobin 9.7 g/dL (14.0-18.0); Lymphocyte % 22.1 %; Mean Corpuscular HGB Conc 35 g/dL (31-36); Mean Corpuscular Hemoglobin 31 pg (27-31); Mean Corpuscular Volume 89 fL (80-94); Mean Platelet Volume 6.4 fL (7.4-10.4); Nucleated Red Blood Cells % 0.1; Platelet Count 293 10^3/uL (150-450); Red Blood Count 3.12 10^6 /uL (4.18-5.48); Red Cell Distribution Width 16 % (10-15); White Blood Count 7.2 10^3/uL (3.5-10.8)
[2021-01-24] MEDS: Heparin 5000 UNITS/ML 1 mL VIAL SUBCUT SCH (06:14)
[2021-01-24 06:16] LABS: Calcium 8.3 mg/dL (8.6-10.3); EGFR African American 95.9 (>60); EGFR Non-African American 79.2 (>60)
[2021-01-24] MEDS: NS 0.9% 1000 ml BAG 1,000 ML IV SCH (06:57)
[2021-01-24] MEDS ORDERED: NS 0.9% 1000 ml BAG 1,000 ML IV SCH (07:06)
[2021-01-24] MEDS: Nicotine PATCH 21 MG/24 HR PATCH TRANSDERM SCH (08:37)
[2021-01-24 11:41] VITALS: BP 147/75
== END 2021-01-24 13:55 | disposition home or self-care (01) | DRG 425 ==
LOC: ED 18:49 → MEDTELE 01-23 00:42 → SUATTDRO 01-23 00:42 → MEDTELE 01-23 02:54
PROVIDERS: ADMIT Internal Medicine; ATTEND Hospitalist

== ENCOUNTER 2021-01-28 15:49 | Inpatient (IN) ==
[2021-01-28 16:52] LABS: ABS Eosinophils 0.2 10^3/ul (0-0.6); ABS Lymphocytes 1.7 10^3/ul (1.0-4.8); ABS Monocytes 0.5 10^3/ul (0-0.8); ABS Neutrophils 5.8 10^3/ul (1.5-7.7); Hematocrit 27 % (42-52); Hemoglobin 9.7 g/dL (14.0-18.0); Mean Corpuscular HGB Conc 36 g/dL (31-36); Mean Corpuscular Hemoglobin 32 pg (27-31); Mean Corpuscular Volume 90 fL (80-94); Mean Platelet Volume 5.9 fL (7.4-10.4); Platelet Count 258 10^3/uL (150-450); Red Blood Count 3.06 10^6 /uL (4.18-5.48); Red Cell Distribution Width 16 % (10-15); White Blood Count 8.1 10^3/uL (3.5-10.8)
[2021-01-28 16:53] LABS: Lymphocyte % 20.4 %; Nucleated Red Blood Cells % 0.1
[2021-01-28 16:56] LABS: Urine Appearance Cloudy; Urine Bilirubin Negative (Negative); Urine Blood 1+ (Negative); Urine Color Yellow; Urine Glucose 1+(50 mg/dL) (Negative); Urine Ketones Negative (Negative); Urine Nitrite Negative (Negative); Urine Protein 2+(100 mg/dL) (Negative); Urine Specific Gravity 1.004 (1.002-1.030); Urine Urobilinogen Negative (Negative)
[2021-01-28 17:06] LABS: Urine Bacteria 1+ (Absent); Urine Red Blood Cell 2+(6-10/hpf) (Absent); Urine White Blood Cell 3+(>20/hpf) (Absent)
[2021-01-28 17:15] LABS: ALT 18 U/L (7-52); AST 16 U/L (13-39); Albumin 3.6 g/dL (3.2-5.2); Albumin/Globulin Ratio 1.2 (1-3); Alkaline Phosphatase 75 U/L (35-149); Blood Urea Nitrogen 10 mg/dL (6-24); C Reactive Protein 5.92 mg/L (<8.01); Calcium 8.8 mg/dL (8.6-10.3); Chloride 93 mmol/L (101-111); EGFR African American 91.5 (>60); EGFR Non-African American 75.6 (>60); Globulin 3.1 g/dL (2-4); Glucose 201 mg/dL (70-100); Potassium 3.9 mmol/L (3.5-5.0); Sodium 121 mmol/L (135-145); Total Protein 6.7 g/dL (6.4-8.9)
[2021-01-28 17:16] LABS: Anion Gap 14 mmol/L (2-11); CO2 Carbon Dioxide 14 mmol/L (22-32)
[2021-01-28] MEDS ORDERED: NS 0.9% 1000 ml BAG 1,000 ML IV ONE ×2 (17:57→21:30)
[2021-01-28 18:06] LABS: PCO2 Arterial 23 mmHg (35-45); PO2 Arterial 116 mmHg (80-100)
[2021-01-28] MEDS ORDERED: Dextrose 50% Syringe 50 ml 25 GM/50 ML SYRINGE IV PUSH PRN (19:40)
[2021-01-28 20:04] LABS: % Iron Saturation 33 % (15-55); Iron 93 ug/dL (50-212); Total Iron Binding Capacity 279 mcg/dL (250-450); Transferrin 199 mg/dL (203-362); Unsaturated Iron Binding < 264 ug/dL
[2021-01-28 20:06] LABS: Magnesium 1.5 mg/dL (1.9-2.7)
[2021-01-28] MEDS ORDERED: Magnesium Sulf 4 GM/100 ML IV 4,000 MG/100 ML BAG IVPB ONE (20:19)
[2021-01-28 20:54] LABS: Anion Gap 9 mmol/L (2-11); Blood Urea Nitrogen 9 mg/dL (6-24); CO2 Carbon Dioxide 17 mmol/L (22-32); Calcium 8.5 mg/dL (8.6-10.3); Chloride 96 mmol/L (101-111); EGFR African American 90.5 (>60); EGFR Non-African American 74.8 (>60); Glucose 137 mg/dL (70-100); Potassium 3.8 mmol/L (3.5-5.0); Sodium 122 mmol/L (135-145)
[2021-01-28 21:01] LABS: Alcohol, S < 13 mg/dL (<13)
[2021-01-28] MEDS ORDERED: NS 0.9% 500 ml BAG 500 ML IV ONE (21:31)
[2021-01-28] MEDS ORDERED: Meropenem 1 GM PREMIX(*) 1 GM/50 ML BAG IV SCH (22:00)
[2021-01-28] MEDS: Enoxaparin 40 MG/0.4 ML SYR SUBCUT SCH (23:10)
[2021-01-29 06:12] LABS: Calcium 8.5 mg/dL (8.6-10.3); EGFR African American 100.6 (>60); EGFR Non-African American 83.2 (>60); Magnesium 2.6 mg/dL (1.9-2.7); Potassium 4.3 mmol/L (3.5-5.0)
[2021-01-29] MEDS: Meropenem 1 GM PREMIX(*) 1 GM/50 ML BAG IV SCH ×2 (08:47→17:59)
[2021-01-29] MEDS: Nicotine PATCH 21 MG/24 HR PATCH TRANSDERM SCH (08:47)
[2021-01-29 18:51] LABS: Calcium 9.1 mg/dL (8.6-10.3); EGFR African American 92.5 (>60); EGFR Non-African American 76.5 (>60); Potassium 4.3 mmol/L (3.5-5.0)
[2021-01-29] MEDS: Enoxaparin 40 MG/0.4 ML SYR SUBCUT SCH (21:16)
[2021-01-30] MEDS: Meropenem 1 GM PREMIX(*) 1 GM/50 ML BAG IV SCH ×2 (02:01→08:50)
[2021-01-30 05:24] LABS: Calcium 8.5 mg/dL (8.6-10.3); EGFR African American 95.9 (>60); EGFR Non-African American 79.2 (>60); Potassium 4.3 mmol/L (3.5-5.0)
[2021-01-30 07:37] VITALS: BP 142/70
[2021-01-30] MEDS: Nicotine PATCH 21 MG/24 HR PATCH TRANSDERM SCH (08:51)
== END 2021-01-30 15:00 | disposition home or self-care (01) | DRG 422 ==
LOC: ED 15:49 → MED 21:14 → SUATTDRO 21:14 → MED 22:10
PROVIDERS: ADMIT Student in an Organized Health Care Education/Training Program; ATTEND Internal Medicine

== ENCOUNTER 2021-09-18 16:38 | Inpatient (IN) ==
[2021-09-18] MEDS ORDERED: Naloxone 0.4 mg VIAL 0.4 mg/ml 1 ml VIAL IV PUSH ONE (16:50)
[2021-09-18] MEDS ORDERED: Naloxone 0.4 mg VIAL 0.4 mg/ml 1 ml VIAL ONE (16:51)
[2021-09-18 17:23] LABS: ABS Eosinophils 0.1 10^3/ul (0-0.6); ABS Lymphocytes 0.7 10^3/ul (1.0-4.8); ABS Monocytes 0.3 10^3/ul (0-0.8); ABS Neutrophils 3.4 10^3/ul (1.5-7.7); Eosinophil % 1.2 %; Hematocrit 31 % (42-52); Hemoglobin 10.7 g/dL (14.0-18.0); Lymphocyte % 14.7 %; Mean Corpuscular HGB Conc 34 g/dL (31-36); Mean Corpuscular Hemoglobin 32 pg (27-31); Mean Corpuscular Volume 94 fL (80-94); Mean Platelet Volume 5.7 fL (7.4-10.4); Platelet Count 298 10^3/uL (150-450); Red Blood Count 3.34 10^6 /uL (4.18-5.48); Red Cell Distribution Width 15 % (10-15); White Blood Count 4.5 10^3/uL (3.5-10.8)
[2021-09-18 17:50] LABS: Urine Benzodiazepine Screen None Detected (None Detect); Urine Cannabinoids Screen None Detected (None Detect); Urine Opiates Screen Presumptive Positive (None Detect)
[2021-09-18 17:54] LABS: Albumin 3.1 g/dL (3.2-5.2); Albumin/Globulin Ratio 1.2 (1-3); Calcium 7.6 mg/dL (8.6-10.3); Globulin 2.6 g/dL (2-4); Total Bilirubin 0.4 mg/dL (0.2-1.0); Total Protein 5.7 g/dL (6.4-8.9); eGFR CKD-EPI 59.1 (>60)
[2021-09-18 18:38] LABS: Potassium 4.1 mmol/L (3.5-5.0)
[2021-09-18] MEDS ORDERED: Calcium Gluconate 2 GM in NS 0.9% 100 ml BAG 100 ML IVPB ONE (21:20)
[2021-09-19] MEDS ORDERED: Dextrose 50% Syringe 50 ml 25 GM/50 ML SYRINGE IV PUSH PRN (03:58)
[2021-09-19] MEDS: Enoxaparin 40 MG/0.4 ML SYR SUBCUT SCH (07:02)
[2021-09-19 08:55] LABS: ABS Eosinophils 0.1 10^3/ul (0-0.6); ABS Lymphocytes 1.4 10^3/ul (1.0-4.8); ABS Monocytes 0.5 10^3/ul (0-0.8); Eosinophil % 2.6 %; Hematocrit 32 % (42-52); Hemoglobin 10.7 g/dL (14.0-18.0); Lymphocyte % 27.2 %; Mean Corpuscular HGB Conc 34 g/dL (31-36); Mean Corpuscular Hemoglobin 32 pg (27-31); Mean Corpuscular Volume 95 fL (80-94); Nucleated Red Blood Cells % 0.1; Platelet Count 273 10^3/uL (150-450); Red Blood Count 3.36 10^6 /uL (4.18-5.48); Red Cell Distribution Width 15 % (10-15); White Blood Count 5.1 10^3/uL (3.5-10.8)
[2021-09-19] MEDS ORDERED: Multivitamins/Minerals TAB PO SCH (09:00)
[2021-09-19] MEDS: Multivitamins/Minerals TAB PO SCH (09:24)
[2021-09-19 09:49] LABS: Calcium 8.3 mg/dL (8.6-10.3); Potassium 4.5 mmol/L (3.5-5.0); eGFR CKD-EPI 55.2 (>60)
[2021-09-20] MEDS: Enoxaparin 40 MG/0.4 ML SYR SUBCUT SCH (06:02)
[2021-09-20] MEDS: Multivitamins/Minerals TAB PO SCH (07:46)
[2021-09-20 09:59] LABS: ABS Eosinophils 0.1 10^3/ul (0-0.6); ABS Lymphocytes 0.5 10^3/ul (1.0-4.8); ABS Monocytes 0.3 10^3/ul (0-0.8); ABS Neutrophils 5.2 10^3/ul (1.5-7.7); Eosinophil % 2.1 %; Hematocrit 33 % (42-52); Hemoglobin 11.1 g/dL (14.0-18.0); Lymphocyte % 8.5 %; Mean Corpuscular HGB Conc 34 g/dL (31-36); Mean Corpuscular Hemoglobin 32 pg (27-31); Mean Corpuscular Volume 95 fL (80-94); Platelet Count 281 10^3/uL (150-450); Red Blood Count 3.47 10^6 /uL (4.18-5.48); Red Cell Distribution Width 15 % (10-15); White Blood Count 6.2 10^3/uL (3.5-10.8)
[2021-09-20 10:48] LABS: Calcium 8.1 mg/dL (8.6-10.3); Potassium 4.4 mmol/L (3.5-5.0); eGFR CKD-EPI 60.6 (>60)
[2021-09-20] MEDS ORDERED: Albuterol HFA INHALER 8 gm MDI INH PRN (15:54)
[2021-09-20 17:49] LABS: Ferritin 111.2 ng/mL (24-336)
[2021-09-21] MEDS: Enoxaparin 40 MG/0.4 ML SYR SUBCUT SCH (05:23)
[2021-09-21] MEDS: Multivitamins/Minerals TAB PO SCH (08:14)
[2021-09-21] MEDS ORDERED: Aspirin EC 81 mg TAB.EC (enteric coated) PO SCH (09:00)
[2021-09-21 09:27] LABS: Calcium 8.2 mg/dL (8.6-10.3); Potassium 4.2 mmol/L (3.5-5.0)
[2021-09-21 15:55] LABS: Osmolality Serum 285 mOsm/kg (275-295)
[2021-09-21 18:35] LABS: Urine Osmo 274 mOsm/kg (150-1150)
[2021-09-22 08:03] LABS: HDL Cholesterol 42.6 mg/dL
[2021-09-22] MEDS: Multivitamins/Minerals TAB PO SCH (10:59)
[2021-09-22 12:11] LABS: TSH Ultra Thyroid Stim Horm 4.62 mcIU/mL (0.34-5.60)
[2021-09-23] MEDS: Multivitamins/Minerals TAB PO SCH (08:45)
[2021-09-24] MEDS: Multivitamins/Minerals TAB PO SCH (08:48)
[2021-09-24 08:56] LABS: Calcium 9.1 mg/dL (8.6-10.3); Potassium 4.4 mmol/L (3.5-5.0)
[2021-09-25] MEDS: Multivitamins/Minerals TAB PO SCH (08:34)
[2021-09-25] MEDS ORDERED: Dextrose 50% Syringe 50 ml 25 GM/50 ML SYRINGE IV PUSH PRN (19:41)
[2021-09-26] MEDS: Multivitamins/Minerals TAB PO SCH (08:54)
[2021-09-26 17:59] LABS: Glucose Confirmatory 431 mg/dL (70-100)
[2021-09-27] MEDS: Multivitamins/Minerals TAB PO SCH (08:12)
[2021-09-28] MEDS: Multivitamins/Minerals TAB PO SCH (08:44)
[2021-09-29] MEDS: Multivitamins/Minerals TAB PO SCH (07:26)
[2021-09-30] MEDS: Multivitamins/Minerals TAB PO SCH (07:38)
[2021-09-30 08:46] VITALS: BP 121/79
== END 2021-09-30 15:45 | disposition home or self-care (01) | DRG 773 ==
LOC: ED 16:38 → EDHOLD 16:38 → SUATTDRO 09-19 03:27 → EDHOLD 09-19 13:16 → MEDTELE 09-19 13:17 → SUATTDRO 09-20 13:53 → BSU 09-21 17:15
PROVIDERS: ADMIT Internal Medicine; ATTEND Psychiatry & Neurology Psychiatry

== ENCOUNTER 2021-11-04 15:45 | Inpatient (IN) ==
[2021-11-04 17:17] LABS: ABS Lymphocytes 0.2 10^3/ul (1.0-4.8); ABS Monocytes 1.1 10^3/ul (0-0.8); ABS Neutrophils 13.1 10^3/ul (1.5-7.7); Eosinophil % 0.1 %; Hematocrit 28 % (42-52); Hemoglobin 9.4 g/dL (14.0-18.0); Lymphocyte % 1.2 %; Mean Corpuscular HGB Conc 33 g/dL (31-36); Mean Corpuscular Hemoglobin 32 pg (27-31); Mean Corpuscular Volume 96 fL (80-94); Mean Platelet Volume 7.3 fL (7.4-10.4); Platelet Count 166 10^3/uL (150-450); Red Blood Count 2.97 10^6 /uL (4.18-5.48); Red Cell Distribution Width 15 % (10-15); White Blood Count 14.4 10^3/uL (3.5-10.8)
[2021-11-04 17:54] LABS: Calcium 7.8 mg/dL (8.6-10.3); Globulin 2.9 g/dL (2-4); Potassium 4.2 mmol/L (3.5-5.0); Total Bilirubin 1.1 mg/dL (0.2-1.0); Total Protein 5.9 g/dL (6.4-8.9)
[2021-11-04] MEDS ORDERED: Lactated Ringers 1000 ml BAG 1,000 ML IV ONE (17:57)
[2021-11-04 18:27] LABS: Urine Appearance Cloudy; Urine Specific Gravity 1.018 (1.002-1.030)
[2021-11-04 18:29] LABS: Urine Color Red
[2021-11-04 18:44] LABS: Urine Red Blood Cell 3+(>10/hpf) (Absent); Urine White Blood Cell Trace(0-5/hpf) (Absent)
[2021-11-04] MEDS ORDERED: Dextrose 50% Syringe 50 ml 25 GM/50 ML SYRINGE IV PUSH PRN (22:39)
[2021-11-04] MEDS ORDERED: Albuterol HFA INHALER 8 gm MDI INH PRN (22:43)
[2021-11-04] MEDS ORDERED: Thiamine 100 MG/ML 2 ml VIAL 100 MG, Folic Acid IV 1 MG, Multiple Vitamin IV ADULT 10 M... IV ONE (22:46)
[2021-11-04] MEDS ORDERED: Insulin GLARGINE 100 un/ml 10 ml VIAL SUBCUT SCH (23:00)
[2021-11-04] MEDS ORDERED: HYDROmorphone 1 MG/1 ML SYRINGE IV SLOW PU PRN (23:16)
[2021-11-04] MEDS ORDERED: HYDROmorphone 0.5 MG/0.5 ML SYRINGE IV SLOW PU PRN (23:16)
[2021-11-04] MEDS ORDERED: Nicotine GUM 2MG FRUIT FLAVOR PO PRN (23:20)
[2021-11-04] MEDS ORDERED: cefTRIAXone 1 gm/50 mL D5W 1 GM/50 ML BAG IV ONE (23:30)
[2021-11-04 23:50] LABS: Urine Osmo 279 mOsm/kg (150-1150)
[2021-11-05 01:00] LABS: TSH Ultra Thyroid Stim Horm 3.08 mcIU/mL (0.34-5.60)
[2021-11-05 01:14] LABS: Osmolality Serum 275 mOsm/kg (275-295)
[2021-11-05] MEDS ORDERED: Lactated Ringers 1000 ml BAG 1,000 ML IV ONE ×2 (02:04→06:57)
[2021-11-05 02:27] LABS: Urine Creatinine Concentration 39.1 mg/dL
[2021-11-05 08:34] LABS: ABS Lymphocytes 0.4 10^3/ul (1.0-4.8); ABS Neutrophils 8.9 10^3/ul (1.5-7.7); Eosinophil % 0.1 %; Hematocrit 27 % (42-52); Hemoglobin 9.3 g/dL (14.0-18.0); Lymphocyte % 4.3 %; Mean Corpuscular HGB Conc 34 g/dL (31-36); Mean Corpuscular Hemoglobin 33 pg (27-31); Mean Corpuscular Volume 96 fL (80-94); Mean Platelet Volume 7.5 fL (7.4-10.4); Platelet Count 165 10^3/uL (150-450); Red Blood Count 2.83 10^6 /uL (4.18-5.48); Red Cell Distribution Width 15 % (10-15); White Blood Count 10.4 10^3/uL (3.5-10.8)
[2021-11-05 08:40] LABS: INR 1.04 (0.86-1.15)
[2021-11-05 09:04] LABS: Venous Bicarbonate HCO3 18.2 mmol/L (24-28)
[2021-11-05 09:24] LABS: C Reactive Protein 205.09 mg/L (<8.01); Potassium 3.6 mmol/L (3.5-5.0); eGFR CKD-EPI 38.9 (>60)
[2021-11-05] MEDS: Nicotine PATCH 14 MG/24 HR PATCH TRANSDERM SCH (09:44)
[2021-11-05] MEDS ORDERED: NS 0.9% 1000 ml BAG 1,000 ML IV SCH ×2 (11:45→12:35)
[2021-11-05] MEDS ORDERED: Dextrose 50% Syringe 50 ml 25 GM/50 ML SYRINGE IV PUSH PRN (13:37)
[2021-11-05] MEDS ORDERED: cefTRIAXone 1 gm/50 mL D5W 1 GM/50 ML BAG IV ONE (14:15)
[2021-11-05] MEDS: Morphine 2 MG/ML SYRINGE IV PRN ×2 (14:59→20:11)
[2021-11-05 16:34] LABS: Calcium 7.9 mg/dL (8.6-10.3); eGFR CKD-EPI 40.7 (>60)
[2021-11-05 18:44] LABS: ABS Lymphocytes 0.4 10^3/ul (1.0-4.8); ABS Monocytes 1.2 10^3/ul (0-0.8); Eosinophil % 0.1 %; Hematocrit 31 % (42-52); Hemoglobin 10.5 g/dL (14.0-18.0); Lymphocyte % 4.1 %; Mean Corpuscular HGB Conc 34 g/dL (31-36); Mean Corpuscular Hemoglobin 33 pg (27-31); Mean Corpuscular Volume 97 fL (80-94); Mean Platelet Volume 7.3 fL (7.4-10.4); Nucleated Red Blood Cells % 0.1; Platelet Count 182 10^3/uL (150-450); Red Blood Count 3.22 10^6 /uL (4.18-5.48); Red Cell Distribution Width 15 % (10-15); White Blood Count 10.7 10^3/uL (3.5-10.8)
[2021-11-05] MEDS ORDERED: Insulin GLARGINE 100 un/ml 10 ml VIAL SUBCUT SCH ×2 (21:00)
[2021-11-05] MEDS: Sodium Bicarb 650 mg (ANTACID) TAB PO SCH (22:15)
[2021-11-05] MEDS ORDERED: Nitro 2% OINT (Nitroglycerin) 1 INCH/PAK TOPICAL ONE (23:08)
[2021-11-05] MEDS ORDERED: Morphine 2 MG/ML SYRINGE IV PRN (23:10)
[2021-11-06] MEDS ORDERED: cefTRIAXone 1 gm/50 mL D5W 1 GM/50 ML BAG IV SCH
[2021-11-06] MEDS: cefTRIAXone 2 gm/50 mL D5W 2 GM/50 ML BAG IV SCH (05:58)
[2021-11-06 06:00] LABS: ABS Eosinophils 0.1 10^3/ul (0-0.6); ABS Lymphocytes 0.5 10^3/ul (1.0-4.8); ABS Monocytes 1.2 10^3/ul (0-0.8); ABS Neutrophils 6.2 10^3/ul (1.5-7.7); Eosinophil % 0.8 %; Hematocrit 24 % (42-52); Hemoglobin 8.3 g/dL (14.0-18.0); Lymphocyte % 5.9 %; Mean Corpuscular HGB Conc 34 g/dL (31-36); Mean Corpuscular Hemoglobin 33 pg (27-31); Mean Corpuscular Volume 96 fL (80-94); Mean Platelet Volume 7.2 fL (7.4-10.4); Nucleated Red Blood Cells % 0.1; Platelet Count 198 10^3/uL (150-450); Red Blood Count 2.55 10^6 /uL (4.18-5.48); Red Cell Distribution Width 15 % (10-15)
[2021-11-06 06:47] LABS: Calcium 7.9 mg/dL (8.6-10.3); Magnesium 1.9 mg/dL (1.9-2.7); Potassium 3.7 mmol/L (3.5-5.0); eGFR CKD-EPI 43.1 (>60)
[2021-11-06] MEDS ORDERED: Magnesium Sulfate 2 gm BAG 2 GM/50 ML BAG IVPB ONE (07:18)
[2021-11-06] MEDS ORDERED: NS 0.9% 1000 ml BAG 1,000 ML IV SCH (07:45)
[2021-11-06 08:36] LABS: Urine Appearance Cloudy; Urine Benzodiazepine Screen None Detected (None Detect); Urine Bilirubin Negative (Negative); Urine Blood 3+ (Negative); Urine Buprenorphine Screen None Detected (None Detect); Urine Cannabinoids Screen None Detected (None Detect); Urine Color Amber; Urine Fentanyl Screen None Detected (None Detect); Urine Glucose 1+(50 mg/dL) (Negative); Urine Hydrocodone Screen None Detected (None Detect); Urine Ketones Negative (Negative); Urine Nitrite Negative (Negative); Urine Opiates Screen Presumptive Positive (None Detect); Urine Protein 2+(100 mg/dL) (Negative); Urine Specific Gravity 1.006 (1.002-1.030); Urine Urobilinogen Negative (Negative)
[2021-11-06] MEDS: Sodium Bicarb 650 mg (ANTACID) TAB PO SCH ×2 (08:36→21:48)
[2021-11-06 08:43] LABS: Urine Bacteria 2+ (Absent); Urine Red Blood Cell 3+(>10/hpf) (Absent); Urine White Blood Cell 3+(>20/hpf) (Absent)
[2021-11-06] MEDS: Nicotine PATCH 14 MG/24 HR PATCH TRANSDERM SCH (08:54)
[2021-11-06] MEDS ORDERED: Insulin GLARGINE 100 un/ml 10 ml VIAL SUBCUT SCH ×2 (09:00→21:00)
[2021-11-06 11:47] LABS: Calcium 7.8 mg/dL (8.6-10.3); Potassium 3.4 mmol/L (3.5-5.0); eGFR CKD-EPI 46.9 (>60)
[2021-11-06 12:00] LABS: Hematocrit 24 % (42-52); Hemoglobin 8.4 g/dL (14.0-18.0)
[2021-11-06] MEDS ORDERED: Potassium Chlor 20 meq TAB.ER PO ONE (12:05)
[2021-11-06 12:27] LABS: Magnesium 2.8 mg/dL (1.9-2.7)
[2021-11-06] MEDS: Ure-Na 15 GM POWD.PACK PO SCH (21:47)
[2021-11-06] MEDS: Insulin GLARGINE 100 un/ml 10 ml VIAL SUBCUT SCH (21:50)
[2021-11-07 06:07] LABS: Hematocrit 23 % (42-52); Hemoglobin 7.8 g/dL (14.0-18.0); Mean Corpuscular HGB Conc 34 g/dL (31-36); Mean Corpuscular Hemoglobin 32 pg (27-31); Mean Corpuscular Volume 95 fL (80-94); Mean Platelet Volume 7.2 fL (7.4-10.4); Platelet Count 278 10^3/uL (150-450); Red Blood Count 2.41 10^6 /uL (4.18-5.48); Red Cell Distribution Width 15 % (10-15); White Blood Count 5.4 10^3/uL (3.5-10.8)
[2021-11-07] MEDS: cefTRIAXone 2 gm/50 mL D5W 2 GM/50 ML BAG IV SCH (06:31)
[2021-11-07 06:41] LABS: Anion Gap 8 mmol/L (2-11); Blood Urea Nitrogen 48 mg/dL (6-24); CO2 Carbon Dioxide 20 mmol/L (22-32); Calcium 7.8 mg/dL (8.6-10.3); Chloride 95 mmol/L (101-111); Glucose 265 mg/dL (70-100); Magnesium 2.1 mg/dL (1.9-2.7); Sodium 123 mmol/L (135-145); eGFR CKD-EPI 51.3 (>60)
[2021-11-07] MEDS ORDERED: NS 0.9% 1000 ml BAG 1,000 ML IV SCH (07:45)
[2021-11-07] MEDS: Insulin GLARGINE 100 un/ml 10 ml VIAL SUBCUT SCH ×2 (08:08→21:43)
[2021-11-07] MEDS: Sodium Bicarb 650 mg (ANTACID) TAB PO SCH ×2 (08:10→21:42)
[2021-11-07] MEDS: Nicotine PATCH 14 MG/24 HR PATCH TRANSDERM SCH (08:11)
[2021-11-07] MEDS: Ure-Na 15 GM POWD.PACK PO SCH ×2 (08:23→21:40)
[2021-11-07 09:14] LABS: Total Iron Binding Capacity 202 mcg/dL (250-450); Transferrin 144 mg/dL (203-362)
[2021-11-07 09:16] LABS: % Iron Saturation 10 % (15-55); Iron < 20 ug/dL (50-212); Unsaturated Iron Binding 182 ug/dL
[2021-11-07] MEDS ORDERED: Iron Sucrose 200 MG in NS 0.9% 100 ml BAG 100 ML IVPB ONE (11:20)
[2021-11-07 14:51] LABS: Hematocrit 24 % (42-52)
[2021-11-08 05:28] LABS: ABS Eosinophils 0.2 10^3/ul (0-0.6); ABS Lymphocytes 0.7 10^3/ul (1.0-4.8); ABS Monocytes 0.7 10^3/ul (0-0.8); ABS Neutrophils 4.2 10^3/ul (1.5-7.7); Eosinophil % 2.8 %; Hematocrit 23 % (42-52); Lymphocyte % 11.7 %; Mean Corpuscular HGB Conc 34 g/dL (31-36); Mean Corpuscular Hemoglobin 33 pg (27-31); Mean Corpuscular Volume 95 fL (80-94); Platelet Count 380 10^3/uL (150-450); Red Blood Count 2.45 10^6 /uL (4.18-5.48); Red Cell Distribution Width 15 % (10-15); White Blood Count 5.7 10^3/uL (3.5-10.8)
[2021-11-08 06:00] LABS: Calcium 8.3 mg/dL (8.6-10.3); Magnesium 1.8 mg/dL (1.9-2.7); Potassium 4.3 mmol/L (3.5-5.0)
[2021-11-08] MEDS: cefTRIAXone 2 gm/50 mL D5W 2 GM/50 ML BAG IV SCH (06:12)
[2021-11-08] MEDS ORDERED: Magnesium Sulfate 2 gm BAG 2 GM/50 ML BAG IVPB ONE (08:29)
[2021-11-08] MEDS: Sodium Bicarb 650 mg (ANTACID) TAB PO SCH ×2 (09:01→20:35)
[2021-11-08] MEDS: Ure-Na 15 GM POWD.PACK PO SCH ×2 (09:01→20:35)
[2021-11-08] MEDS: Insulin GLARGINE 100 un/ml 10 ml VIAL SUBCUT SCH ×2 (09:03→20:35)
[2021-11-08] MEDS: Nicotine PATCH 14 MG/24 HR PATCH TRANSDERM SCH (09:19)
[2021-11-08] MEDS: NS 0.9% 1000 ml BAG 1,000 ML IV SCH ×2 (11:39→17:25)
[2021-11-08] MEDS ORDERED: Iron Sucrose 200 MG in NS 0.9% 100 ml BAG 100 ML IVPB ONE (12:03)
[2021-11-09 06:18] LABS: Hematocrit 24 % (42-52); Mean Corpuscular HGB Conc 34 g/dL (31-36); Mean Corpuscular Hemoglobin 32 pg (27-31); Mean Corpuscular Volume 96 fL (80-94); Mean Platelet Volume 6.8 fL (7.4-10.4); Platelet Count 443 10^3/uL (150-450); Red Blood Count 2.47 10^6 /uL (4.18-5.48); Red Cell Distribution Width 15 % (10-15); White Blood Count 6.3 10^3/uL (3.5-10.8)
[2021-11-09] MEDS: cefTRIAXone 2 gm/50 mL D5W 2 GM/50 ML BAG IV SCH (06:20)
[2021-11-09] MEDS: NS 0.9% 1000 ml BAG 1,000 ML IV SCH (06:22)
[2021-11-09 06:41] LABS: ABS Eosinophils 0.1 10^3/ul (0-0.6); ABS Lymphocytes 0.8 10^3/ul (1.0-4.8); ABS Monocytes 0.7 10^3/ul (0-0.8); ABS Neutrophils 4.7 10^3/ul (1.5-7.7); Eosinophil % 2.2 %; Lymphocyte % 12.6 %
[2021-11-09 07:07] LABS: Calcium 8.5 mg/dL (8.6-10.3); Magnesium 2.1 mg/dL (1.9-2.7); Potassium 4.7 mmol/L (3.5-5.0); eGFR CKD-EPI 57.1 (>60)
[2021-11-09] MEDS ORDERED: Iron Sucrose 200 MG in NS 0.9% 100 ml BAG 100 ML IVPB ONE (09:49)
[2021-11-09] MEDS: Ure-Na 15 GM POWD.PACK PO SCH (09:58)
[2021-11-09] MEDS: Insulin GLARGINE 100 un/ml 10 ml VIAL SUBCUT SCH (09:59)
[2021-11-09] MEDS: Sodium Bicarb 650 mg (ANTACID) TAB PO SCH (10:00)
[2021-11-09] MEDS: Nicotine PATCH 14 MG/24 HR PATCH TRANSDERM SCH (10:03)
[2021-11-09 16:16] VITALS: BP 147/66
== END 2021-11-09 15:30 | disposition home or self-care (01) | DRG 720 ==
LOC: ED 15:45 → EDHOLD 22:29 → SUATTDRO 22:29 → MEDTELE 11-05 01:24
PROVIDERS: ADMIT Internal Medicine; ATTEND Family Medicine